=== PATIENT | male | born 1990 | race American Indian/Alaskan Native ===

== ENCOUNTER 2017-07-09 10:19 | Inpatient (IN) | payer SELFPAY ==
[2017-07-09 11:04] LABS: Hematocrit 50.5 % (35.5-45.6); Hemoglobin 17.1 gm/dl (11.8-15.2); Mean Corpuscular HGB Conc 34 % (32-34); Mean Corpuscular Hemoglobin 30 pg (28-32); Mean Corpuscular Volume 88 fl (84-94); Platelet Count 331 K/mm3 (140-440); Red Blood Count 5.77 M/mm3 (3.65-5.03); Red Cell Distribution Width 13.8 % (13.2-15.2)
--- NOTE | 2017-07-09 11:11 | Emergency Department Report ---
ED Psych HPI - General Chief Complaint: Psych Stated Complaint: AMS/PSYCH Time Seen by Provider: 07/09/17 10:37 Source: EMS Mode of arrival: Stretcher Limitations: Other - History of Present Illness Initial Comments: 26 yo male a past medical history brain tumor and psychiatric disorder presents to the hospital complains of combative behavior towards family. Patient apparently was discharged from her was on Monday where he was taken off his psychiatric medication. Patient is alert. When questioned about the year he just starts and states it is 2000 . . And thinking about with specific ear. Patient denies any pain. Patient cannot describe why he is here today when asked direct questions patient's status and is easily distracted and brings up irrelevant topics. Pt recieved versed in route to hospital via ems - Related Data Allergies Allergy/AdvReac Type Severity Reaction Status Date / Time No Known Allergies Allergy Unverified 07/09/17 10:32 ED Review of Systems ROS: Stated complaint: AMS/PSYCH Other details as noted in HPI Comment: Unobtainable due to pts medical conditions ED Past Medical Hx - Past Medical History Additional medical history: Brain tumor - Surgical History Additional Surgical History: Brain tumor removed 12/07 - Social History Smoking Status: Never Smoker Substance Use Type: None ED Physical Exam - General Limitations: No Limitations - Other Other exam information: General: No limitations, patient is alert in no acute distress Head exam: Atraumatic, normocephalic Eyes exam: Normal appearance, pupils equal reactive to light, extraocular movements intact ENT: Moist mucous membrane, normal oropharynx Neck exam: Normal inspection, full range of motion, no meningismus nontender Respiratory exam: Clear to auscultation bilateral, no wheezes, rales, crackles Cardiovascular: Normal rate and rhythm, normal heart sounds Abdomen: Soft, nondistended, and nontender, with normal bowel sounds, no rebound, or guarding Extremity: Full range of motion normal inspection no deformity Back: Normal Inspection, full range of motion, no tenderness Neurologic: Alert, oriented x3, cranial nerves intact, no motor or sensory deficit Psychiatric: Poor eye contact, psychosis, unable to answer direct questions appropriately Skin: Warm, dry, intact ED Course Vital Signs 07/09/17 07/09/17 07/09/17 10:32 11:07 11:14 Temperature 98.2 F 97.5 F L Pulse Rate 84 77 Respiratory 16 18 17 Rate Blood Pressure 140/78 Blood Pressure 109/66 [Left] O2 Sat by Pulse 99 99 Oximetry - Reevaluation(s) Reevaluation #1: 07/09/17 19:39 Patient required Haldol and Ativan for sedation prior to CT ED Medical Decision Making - Lab Data Result diagrams: 07/09/17 10:43 07/09/17 10:43 Lab Results 07/09/17 07/09/17 07/09/17 Range/Units 10:43 10:43 10:43 WBC 9.8 (4.5-11.0) K/mm3 RBC 5.77 H (3.65-5.03) M/mm3 Hgb 17.1 H (11.8-15.2) gm/dl Hct 50.5 H (35.5-45.6) % MCV 88 (84-94) fl MCH 30 (28-32) pg MCHC 34 (32-34) % RDW 13.8 (13.2-15.2) % Plt Count 331 (140-440) K/mm3 Sodium 140 (137-145) mmol/L Potassium 4.1 (3.6-5.0) mmol/L Chloride 98.5 (98-107) mmol/L Carbon Dioxide 30 (22-30) mmol/L Anion Gap 16 mmol/L BUN 15 (9-20) mg/dL Creatinine 0.9 (0.8-1.5) mg/dL Estimated GFR > 60 ml/min BUN/Creatinine Ratio 17 % Glucose 65 L (75-100) mg/dL Calcium 10.1 (8.4-10.2) mg/dL Urine Color (Yellow) Urine Turbidity (Clear) Urine pH (5.0-7.0) Ur Specific [place] (1.003-1.030) Urine Protein (Negative) mg/dL Urine Glucose (UA) (Negative) mg/dL Urine Ketones (Negative) mg/dL Urine Blood (Negative) Urine Nitrite (Negative) Urine Bilirubin (Negative) Urine Urobilinogen (<2.0) mg/dL Ur Leukocyte Esterase (Negative) Urine WBC (Auto) (0.0-6.0) /HPF Urine RBC (Auto) (0.0-6.0) /HPF U Epithel Cells (Auto) (0-13.0) /HPF Urine Mucus /HPF Urine Opiates Screen Urine Methadone Screen Ur Barbiturates Screen Ur Phencyclidine Scrn Ur Amphetamines Screen U Benzodiazepines Scrn Urine Cocaine Screen U Marijuana (THC) Screen Drugs of Abuse Note Plasma/Serum Alcohol < 0.01 (0-0.07) gm% 07/09/17 07/09/17 Range/Units 15:55 15:55 WBC (4.5-11.0) K/mm3 RBC (3.65-5.03) M/mm3 Hgb (11.8-15.2) gm/dl Hct (35.5-45.6) % MCV (84-94) fl MCH (28-32) pg MCHC (32-34) % RDW (13.2-15.2) % Plt Count (140-440) K/mm3 Sodium (137-145) mmol/L Potassium (3.6-5.0) mmol/L Chloride (98-107) mmol/L Carbon Dioxide (22-30) mmol/L Anion Gap mmol/L BUN (9-20) mg/dL Creatinine (0.8-1.5) mg/dL Estimated GFR ml/min BUN/Creatinine Ratio % Glucose (75-100) mg/dL Calcium (8.4-10.2) mg/dL Urine Color Yellow (Yellow) Urine Turbidity Clear (Clear) Urine pH 6.0 (5.0-7.0) Ur Specific [place] 1.032 H (1.003-1.030) Urine Protein <15 mg/dl (Negative) mg/dL Urine Glucose (UA) Neg (Negative) mg/dL Urine Ketones Neg (Negative) mg/dL Urine Blood Neg (Negative) Urine Nitrite Neg (Negative) Urine Bilirubin Neg (Negative) Urine Urobilinogen 2.0 (<2.0) mg/dL Ur Leukocyte Esterase Neg (Negative) Urine WBC (Auto) 2.0 (0.0-6.0) /HPF Urine RBC (Auto) 10.0 (0.0-6.0) /HPF U Epithel Cells (Auto) < 1.0 (0-13.0) /HPF Urine Mucus 2+ /HPF Urine Opiates Screen Presumptive negative Urine Methadone Screen Presumptive negative Ur Barbiturates Screen Presumptive negative Ur Phencyclidine Scrn Presumptive negative Ur Amphetamines Screen Presumptive negative U Benzodiazepines Scrn Presumptive positive Urine Cocaine Screen Presumptive negative U Marijuana (THC) Screen Presumptive negative Drugs of Abuse Note Disclamer Plasma/Serum Alcohol (0-0.07) gm% - Radiology Data Radiology results: report reviewed CT head: No acute findings. Post surgical changes noted within the right cerebellar hemisphere and right suboccipital calvarium - Medical Decision Making 1013 and transfer form singed medically clearerd awaiting acceptance - Differential Diagnosis psychosis, drug abuse, medication noncompliance Critical Care Time: No Critical care attestation.: If time is entered above; I have spent that time in minutes in the direct care of this critically ill patient, excluding procedure time. ED Disposition Clinical Impression: Psychosis, Medical clearance for psychiatric admission Disposition: [id number]/TX-65 PSY HOSP/PSY UNIT Is pt being admited?: No Does the pt Need Aspirin: No Condition: Stable Time of Disposition: 19:41 (awaiting acceptance)
[2017-07-09 11:18] LABS: BUN/Creatinine Ratio 17; Blood Urea Nitrogen 15 mg/dL (9-20); Calcium 10.1 mg/dL (8.4-10.2); Hemolysis Index 6
[2017-07-09] MEDS ORDERED: GEODON IM ONE ×2 (12:02→12:04)
[2017-07-09] MEDS ORDERED: HALDOL IM ONE (12:55)
[2017-07-09] MEDS ORDERED: HALDOL ONE ×2 (12:56→12:57)
[2017-07-09] MEDS ORDERED: ATIVAN IM ONE (13:30)
--- NOTE | 2017-07-09 14:44 | Cat Scan Report ---
FINAL REPORT EXAM: CT HEAD/BRAIN WO CON HISTORY: psychosis, hx of brain tumor resection May TECHNIQUE: CT of the Head without IV contrast. PRIORS: None currently available. FINDINGS: Focal encephalomalacia noted within the right cerebellar hemisphere probably related to prior surgical resection. There is no evidence for acute ischemia. There is no hemorrhage. There is no midline shift. There is no hydrocephalus. There is no mass. Age appropriate ames-white matter attenuation is noted. There is no calvarial fracture. Patient status post suboccipital craniectomy with overlying mass showed. The temporal bones demonstrate aerated mastoid air cells. The middle ears appear unremarkable. Mild debris is present within both external auditory canals. Paranasal sinuses are unremarkable. Globes are intact. IMPRESSION: No acute intracranial findings. Postsurgical changes noted within the right cerebellar hemisphere and right suboccipital calvarium.
[2017-07-09 16:17] LABS: Bilirubin,Urine NEG (Negative); Blood,Urine NEG (Negative); Color,Urine Yellow (Yellow); Mucus,Urine 2+ /HPF; Nitrite,Urine NEG (Negative); Protein,Urine <15 mg/dL mg/dL (Negative)
[2017-07-09 16:34] LABS: Amphetamine Screen,Urine PRESUMPTIVE NEGATIVE; Cannabinoid Screen,Urine PRESUMPTIVE NEGATIVE; Cocaine Screen,Urine PRESUMPTIVE NEGATIVE; Methadone Screen,Urine PRESUMPTIVE NEGATIVE; Opiate Screen,Urine PRESUMPTIVE NEGATIVE
[2017-07-09 16:40] LABS: Benzodiazepines Screen,Urine PRESUMPTIVE POSITIVE
[2017-07-10] MEDS: ATIVAN IM PRN ×2 (10:52→17:11)
[2017-07-10] MEDS ORDERED: NACL 0.9% 1000 ML 2,000 ML IV ONE (13:38)
[2017-07-10] MEDS ORDERED: NACL 0.9% 1000 ML 1,000 ML ONE (15:51)
--- NOTE | 2017-07-10 16:01 | Consultation ---
History of Present Illness - Reason for Consult Consult date: 07/10/17 Reason for consult: Mental Health Evaluation Requesting physician: KATHERINE TORRES - Chief Complaint Chief complaint: "What are you doing" - History of Present Psychiatric Illness 26 y.o. AA male presenting to [facility] via EMS for bizarre behavior. Today patient is calm, but disorganized during the assessment. Patient had to be redirected several time during the interview. His answers were not logical. The patient stare with a normal blink rate. Patient is a poor historian at this time. No gestures of SI/HI's. Medications and Allergies Allergies Allergy/AdvReac Type Severity Reaction Status Date / Time No Known Allergies Allergy Unverified 07/09/17 10:32 Active Meds: Active Medications Lorazepam (Ativan) 2 mg IM Q4HR PRN PRN Reason: Agitation Last Admin: 07/10/17 10:52 Dose: 2 mg Past psychiatric history - Past Medical History Past Medical History: other (Brain Tumor per the record) Past Surgical History: Other (Unable to obtain) - past Psychiatric treatment and history psychiatric treatment history: Unable to obtain a psy hx and fam psy hx. - Social History Social history: other (Unable to obtain ) Mental Status Exam - Vital signs Last Vital Signs Temp 97.9 F 07/10/17 07:05 Pulse 101 H 07/10/17 07:05 Resp 20 07/10/17 07:05 BP 138/85 07/10/17 07:05 Pulse Ox 99 07/10/17 07:05 - Exam Narrative exam: MSE: Appearance: calm Behavior: stare with a normal blink rate Speech: regular rate and tone Mood: unable to assess Affect: blunted Thought Process: unable to assess Thought Content: no gestures of SI/HI's and AVH's, disorganized Motor Activity: sitting up in bed Cognition: alert Insight: poor Judgment: poor Results Result Diagrams: 07/09/17 10:43 07/09/17 10:43 Abnormal lab results 07/09/17 07/10/17 Range/Units 15:55 09:37 Total Creatine Kinase 1525 H (55-170) units/L Ur Specific [place] 1.032 H (1.003-1.030) All other labs normal. Assessment and Plan Assessment and plan: Impression: Unspecified Psychosis. Today patient is calm, but disorganized during the assessment. Positive for benzos. CK 1525. DDx: R/O Schizophrenia Recommendation/Plan: Continue 1013 with placement to inpatient psy services. Start Risperdal 1 mg PO HS for psychosis. Discusessed possible metabolic side effects of Risperdal with patient. Observe patient overnight to determine if medication will be given for possible catatonia. Monitor patient for withdrawals (benzos).
[2017-07-10] MEDS: RisperDAL PO SCH (21:43)
[2017-07-11] MEDS: ATIVAN IM PRN (06:43)
--- NOTE | 2017-07-11 12:49 | Progress Note ---
Subjective - Reason for Consult Consult date: 07/11/17 Reason for consult: Psychiatry Follow-up - Chief Complaint Chief complaint: "Hello" 26 y.o. AA male presenting to [facility] via EMS for bizarre behavior. Today patient is calm, but disorganized and delusional during the assessment. He stated that someone was following him daily. He couldn't tell me how it got to the hospital. Per collateral information from his mother Lashaun Roa at . She stated that her son had brain surgery to remove a tumor 22 Nov 2016 at [facility]. Per the patient's mother, the last time her son followed up with a neurologist was January 2017. Per Ms Roa, the patient was told to follow up in 6 months. She denies that her son has a mental health dx. She denies a fam psy hx. She stated that his behavior has changed since his surgery. She stated that her son is a student at [employer]. She stated that her son was dealing with stress since May 2017 because of school issues. She stated that his motor skills were not his baseline when she called EMS to bring him to the hospital (current admission). She stated that her son was discharged from [facility] last week without any prescriptions. The patient denies SI/HI's and VH's. Patient stated that he hear "some type of voice , but cannot make them out." Mental Status Exam - Vital signs Last Vital Signs Temp 97.5 F L 07/11/17 10:56 Pulse 82 07/11/17 10:56 Resp 15 07/11/17 10:56 BP 114/64 07/11/17 10:56 Pulse Ox 100 07/11/17 10:56 - Exam Narrative exam: MSE: Appearance: calm, cooperative Behavior: stare with a normal blink rate Speech: regular rate and tone Mood: "okay" Affect: blunted Thought Process: not logical Thought Content: denies SI/HI's and VH's, disorganized, delusional Motor Activity: psychomotor retardation Cognition: A/O x2 Insight: poor Judgment: poor Assessment and Plan Impression: Unspecified Psychosis. Today patient is calm, but disorganized and delusional during the assessment. Positive for benzos. CK trending upward 2369. Per collateral information: Patient had brain surgery November 2016. A copy of his surgical procedure was given to his assigned RN in the ER to put on his chart. DDx: R/O Schizophrenia Recommendation/Plan: Continue 1013. Informed the ER staff about patient brain surgery and the concerns of his mother. Informed ER staff of patient's elevated CK. Continue Risperdal 1 mg PO HS for psychosis. Discussed possible metabolic side effects of Risperdal with patient and his mother. Recommend neuro consult. Will assess patient daily.
[2017-07-11] MEDS ORDERED: NACL 0.9% 1000 ML 1,000 ML IV ONE (19:06)
[2017-07-11] MEDS ORDERED: NACL 0.9% 1000 ML 2,000 ML IV ONE (19:06)
[2017-07-11] MEDS ORDERED: PROVENTIL IH PRN (20:15)
--- NOTE | 2017-07-11 20:17 | History and Physical Report ---
History of Present Illness Chief complaint: confused History of present illness: 26 YO Male with Psychosis presents to ED for evaluation. Pt unable to give history, but history taken from ED staff, and medical record. Pt seen and evaluated in ED for Psychosis, and was pending placement. Pt subsequently found to have elevated CK level around 10x the upper limit of normal which is consistent with Rhabdomyolysis. Pt seen and evaluated in ED and subsequently admitted to the hospitalist service. Pt minimally cooperative with exam and interview. No reports of fever, chills, CP, Palpitations, NVD, hematuria, flank pain, BRBPR, Trauma, productive cough, or recent ill contacts. Pt had brain surgery in November 2016 for a tumor removal, and as per mother, he has experienced changes in his mental state since that time. Pt was recently admitted to [place], and discharged home without medication. Psychiatry consulted in ED. Past History Past Medical History: other (Brain Tumor per the record) Past Surgical History: Other (Unable to obtain) Social history: other (Unable to obtain ) Medications and Allergies Allergies Allergy/AdvReac Type Severity Reaction Status Date / Time No Known Allergies Allergy Unverified 07/09/17 10:32 Active Meds: Active Medications Acetaminophen (Tylenol) 650 mg PO Q4H PRN PRN Reason: Pain MILD(1-3)/Fever >100.5/ANAYA Albuterol (Proventil) 2.5 mg IH Q4HRT PRN PRN Reason: Shortness Of Breath Sodium Chloride (Nacl 0.45% 1000 Ml) 1,000 mls @ 125 mls/hr IV DIRECT SONG Lorazepam (Ativan) 2 mg IM Q4HR PRN PRN Reason: Agitation Last Admin: 07/11/17 06:43 Dose: 2 mg Risperidone (Risperdal) 1 mg PO HS SONG Last Admin: 07/10/17 21:43 Dose: 1 mg Review of Systems ROS unobtainable: due to mental status Exam - Constitutional Vitals: Temp Pulse Resp BP Pulse Ox 97.5 F L 82 15 114/64 100 07/11/17 10:56 07/11/17 10:56 07/11/17 10:56 07/11/17 10:56 07/11/17 10:56 General appearance: Present: no acute distress, well-nourished - EENT Eyes: Present: PERRL ENT: hearing intact, clear oral mucosa - Neck Neck: Present: supple, normal ROM - Respiratory Respiratory effort: normal Respiratory: bilateral: CTA - Cardiovascular Heart Sounds: Present: S1 & S2. Absent: rub, click - Extremities Extremities: pulses symmetrical, No edema Peripheral Pulses: within normal limits - Abdominal General gastrointestinal: Present: soft, non-tender, non-distended, normal bowel sounds Male genitourinary: Present: normal - Integumentary Integumentary: Present: clear, warm, dry - Musculoskeletal Musculoskeletal: gait normal, strength equal bilaterally - Psychiatric Psychiatric: appropriate mood/affect, intact judgment & insight - Neurologic Neurologic: CNII-XII intact, moves all extremities Results - Labs CBC & Chem 7: 07/09/17 10:43 07/09/17 10:43 Labs: Abnormal lab results 07/11/17 Range/Units 12:52 Total Creatine Kinase 2369 H (55-170) units/L Assessment and Plan - Patient Problems (1) Rhabdomyolysis Current Visit: Yes Status: Acute Plan to address problem: IV Fluid resuscitation therapy, monitor uop q shift, CK level in AM. repeat bmp (2) Psychosis Current Visit: Yes Status: Acute Plan to address problem: Psych consulted, (3) DVT prophylaxis Current Visit: Yes Status: Acute
--- NOTE | 2017-07-11 22:00 | XRay Report ---
FINAL REPORT EXAM: XR CHEST 1V AP HISTORY: Dyspnea TECHNIQUE: AP portable view of the chest PRIORS: None. FINDINGS: Lines, tubes, and devices: N/A Lungs and pleura: Trachea is normal in position. Lungs are clear of infiltrate, pleural effusion, vascular congestion, or pneumothorax. Cardiomediastinal silhouette: Cardiac and mediastinal silhouettes are unremarkable. Other: Bony structures are intact. IMPRESSION: No acute cardiopulmonary process seen.
[2017-07-11] MEDS ORDERED: RisperDAL ONE (23:22)
[2017-07-12] MEDS: RisperDAL PO SCH ×2 (00:37→22:32)
--- NOTE | 2017-07-12 08:53 | Progress Note ---
<NATASHA TAVAREZ - Last Filed: 07/13/17 16:00> Assessment and Plan Assessment and plan: Patient is a 26 years old male with Psychosis presents to ED for evaluation. Pt subsequently found to have elevated CK level around 10x the upper limit of normal which is consistent with Rhabdomyolysis. Rhabdomyolysis Continue IV Fluid resuscitation therapy Monitor urine output , Closely monitor CK level Supportive care Psychosis Started on Remeron to help with his appetite Mental following S/p brain surgery The patient's appetite is poor and not sleeping at night and confused . Neurology consult DVT prophylaxis Lovenox History Interval history: Patient seems calm today,labs and nursing notes reviewed. Hospitalist Physical - Constitutional Vitals: Temp Pulse Resp BP Pulse Ox 97.4 F L 58 L 20 114/70 100 07/12/17 07:52 07/12/17 07:52 07/12/17 07:52 07/12/17 07:52 07/12/17 07:52 General appearance: Present: no acute distress, well-nourished, other (confused ) - EENT Eyes: Present: PERRL ENT: hearing intact - Neck Neck: Present: supple - Respiratory Respiratory effort: normal Respiratory: bilateral: CTA - Cardiovascular Rhythm: regular Heart Sounds: Present: S1 & S2 - Abdominal General gastrointestinal: soft, non-tender - Integumentary Integumentary: Present: clear, warm, dry - Psychiatric Psychiatric: appropriate mood/affect - Neurologic Neurologic: moves all extremities - Allied Health Allied health notes reviewed: nursing Results - Labs CBC & Chem 7: 07/09/17 10:43 07/09/17 10:43 Labs: Laboratory Last Values WBC 9.8 K/mm3 (4.5-11.0) 07/09/17 10:43 RBC 5.77 M/mm3 (3.65-5.03) H 07/09/17 10:43 Hgb 17.1 gm/dl (11.8-15.2) H 07/09/17 10:43 Hct 50.5 % (35.5-45.6) H 07/09/17 10:43 MCV 88 fl (84-94) 07/09/17 10:43 MCH 30 pg (28-32) 07/09/17 10:43 MCHC 34 % (32-34) 07/09/17 10:43 RDW 13.8 % (13.2-15.2) 07/09/17 10:43 Plt Count 331 K/mm3 (140-440) 07/09/17 10:43 D-Dimer 433.30 ng/mlDDU (0-234) H 07/11/17 21:46 Sodium 140 mmol/L (137-145) 07/09/17 10:43 Potassium 4.1 mmol/L (3.6-5.0) 07/09/17 10:43 Chloride 98.5 mmol/L (98-107) 07/09/17 10:43 Carbon Dioxide 30 mmol/L (22-30) 07/09/17 10:43 Anion Gap 16 mmol/L 07/09/17 10:43 BUN 15 mg/dL (9-20) 07/09/17 10:43 Creatinine 0.9 mg/dL (0.8-1.5) 07/09/17 10:43 Estimated GFR > 60 ml/min 07/09/17 10:43 BUN/Creatinine Ratio 17 % 07/09/17 10:43 Glucose 65 mg/dL (75-100) L 07/09/17 10:43 Calcium 10.1 mg/dL (8.4-10.2) 07/09/17 10:43 Total Creatine Kinase 1308 units/L (55-170) H 07/12/17 05:46 Urine Color Yellow (Yellow) 07/09/17 15:55 Urine Turbidity Clear (Clear) 07/09/17 15:55 Urine pH 6.0 (5.0-7.0) 07/09/17 15:55 Ur Specific [place] 1.032 (1.003-1.030) H 07/09/17 15:55 Urine Protein <15 mg/dl mg/dL (Negative) 07/09/17 15:55 Urine Glucose (UA) Neg mg/dL (Negative) 07/09/17 15:55 Urine Ketones Neg mg/dL (Negative) 07/09/17 15:55 Urine Blood Neg (Negative) 07/09/17 15:55 Urine Nitrite Neg (Negative) 07/09/17 15:55 Urine Bilirubin Neg (Negative) 07/09/17 15:55 Urine Urobilinogen 2.0 mg/dL (<2.0) 07/09/17 15:55 Ur Leukocyte Esterase Neg (Negative) 07/09/17 15:55 Urine WBC (Auto) 2.0 /HPF (0.0-6.0) 07/09/17 15:55 Urine RBC (Auto) 10.0 /HPF (0.0-6.0) 07/09/17 15:55 U Epithel Cells (Auto) < 1.0 /HPF (0-13.0) 07/09/17 15:55 Urine Mucus 2+ /HPF 07/09/17 15:55 Urine Opiates Screen Presumptive negative 07/09/17 15:55 Urine Methadone Screen Presumptive negative 07/09/17 15:55 Ur Barbiturates Screen Presumptive negative 07/09/17 15:55 Ur Phencyclidine Scrn Presumptive negative 07/09/17 15:55 Ur Amphetamines Screen Presumptive negative 07/09/17 15:55 U Benzodiazepines Scrn Presumptive positive 07/09/17 15:55 Urine Cocaine Screen Presumptive negative 07/09/17 15:55 U Marijuana (THC) Screen Presumptive negative 07/09/17 15:55 Drugs of Abuse Note Disclamer 07/09/17 15:55 Plasma/Serum Alcohol < 0.01 gm% (0-0.07) 07/09/17 10:43 <HAKAN GAUTHIER M - Last Filed: 07/14/17 23:24> Hospitalist Physical - Constitutional Vitals: Temp Pulse Resp BP Pulse Ox 98.6 F 103 H 18 119/71 99 07/14/17 15:30 07/14/17 15:30 07/14/17 15:30 07/14/17 15:30 07/14/17 22:22 Results - Labs CBC & Chem 7: 07/09/17 10:43 07/09/17 10:43 Labs: Laboratory Last Values WBC 9.8 K/mm3 (4.5-11.0) 07/09/17 10:43 RBC 5.77 M/mm3 (3.65-5.03) H 07/09/17 10:43 Hgb 17.1 gm/dl (11.8-15.2) H 07/09/17 10:43 Hct 50.5 % (35.5-45.6) H 07/09/17 10:43 MCV 88 fl (84-94) 07/09/17 10:43 MCH 30 pg (28-32) 07/09/17 10:43 MCHC 34 % (32-34) 07/09/17 10:43 RDW 13.8 % (13.2-15.2) 07/09/17 10:43 Plt Count 331 K/mm3 (140-440) 07/09/17 10:43 D-Dimer 433.30 ng/mlDDU (0-234) H 07/11/17 21:46 Sodium 140 mmol/L (137-145) 07/09/17 10:43 Potassium 4.1 mmol/L (3.6-5.0) 07/09/17 10:43 Chloride 98.5 mmol/L (98-107) 07/09/17 10:43 Carbon Dioxide 30 mmol/L (22-30) 07/09/17 10:43 Anion Gap 16 mmol/L 07/09/17 10:43 BUN 15 mg/dL (9-20) 07/09/17 10:43 Creatinine 0.9 mg/dL (0.8-1.5) 07/09/17 10:43 Estimated GFR > 60 ml/min 07/09/17 10:43 BUN/Creatinine Ratio 17 % 07/09/17 10:43 Glucose 65 mg/dL (75-100) L 07/09/17 10:43 Calcium 10.1 mg/dL (8.4-10.2) 07/09/17 10:43 Total Creatine Kinase 260 units/L (55-170) H 07/14/17 05:17 Vitamin B12 543.5 pg/mL (211-911) 07/14/17 13:40 TSH 2.030 mlU/mL (0.270-4.200) 07/14/17 13:40 Free T4 1.69 ng/dL (0.76-1.46) H 07/14/17 13:40 Urine Color Yellow (Yellow) 07/09/17 15:55 Urine Turbidity Clear (Clear) 07/09/17 15:55 Urine pH 6.0 (5.0-7.0) 07/09/17 15:55 Ur Specific [place] 1.032 (1.003-1.030) H 07/09/17 15:55 Urine Protein <15 mg/dl mg/dL (Negative) 07/09/17 15:55 Urine Glucose (UA) Neg mg/dL (Negative) 07/09/17 15:55 Urine Ketones Neg mg/dL (Negative) 07/09/17 15:55 Urine Blood Neg (Negative) 07/09/17 15:55 Urine Nitrite Neg (Negative) 07/09/17 15:55 Urine Bilirubin Neg (Negative) 07/09/17 15:55 Urine Urobilinogen 2.0 mg/dL (<2.0) 07/09/17 15:55 Ur Leukocyte Esterase Neg (Negative) 07/09/17 15:55 Urine WBC (Auto) 2.0 /HPF (0.0-6.0) 07/09/17 15:55 Urine RBC (Auto) 10.0 /HPF (0.0-6.0) 07/09/17 15:55 U Epithel Cells (Auto) < 1.0 /HPF (0-13.0) 07/09/17 15:55 Urine Mucus 2+ /HPF 07/09/17 15:55 Urine Opiates Screen Presumptive negative 07/09/17 15:55 Urine Methadone Screen Presumptive negative 07/09/17 15:55 Ur Barbiturates Screen Presumptive negative 07/09/17 15:55 Ur Phencyclidine Scrn Presumptive negative 07/09/17 15:55 Ur Amphetamines Screen Presumptive negative 07/09/17 15:55 U Benzodiazepines Scrn Presumptive positive 07/09/17 15:55 Urine Cocaine Screen Presumptive negative 07/09/17 15:55 U Marijuana (THC) Screen Presumptive negative 07/09/17 15:55 Drugs of Abuse Note Disclamer 07/09/17 15:55 Plasma/Serum Alcohol < 0.01 gm% (0-0.07) 07/09/17 10:43
--- NOTE | 2017-07-12 11:48 | Cat Scan Report ---
CTA CHEST: HISTORY: Shortness of breath, elevated d-dimer. COMPARISON: none. TECHNIQUE: Helical CT in 1.25mm intervals following IV contrast. Pulmonary embolus protocol. Sagittal and coronal reformatted images. Rotational MIP images. FINDINGS: Contrast bolus is satisfactory. No pulmonary embolus is identified. Thyroid gland: Normal. Tracheobronchial tree: Normal. Esophagus: Normal. Heart: Normal. Pericardium: Normal. Mediastinum: Normal. Lung [place]: normal. Pleural Spaces: Normal. Musculoskeletal: Normal. IMPRESSION: No evidence for pulmonary embolus. Unremarkable CT chest with contrast.
[2017-07-12] MEDS: ATIVAN IM PRN (12:53)
[2017-07-12] MEDS: NACL 0.45% 1000 ML 1,000 ML IV SCH ×2 (14:44→22:32)
[2017-07-12] MEDS: TYLENOL PO PRN (22:32)
[2017-07-13] MEDS: ATIVAN IM PRN ×2 (02:03→11:32)
--- NOTE | 2017-07-13 09:38 | Progress Note ---
Subjective - Reason for Consult Consult date: 07/13/17 Reason for consult: Psychiatry Follow-up - Chief Complaint Chief complaint: "Hello" 26 y.o. AA male presenting to [facility] via EMS for bizarre behavior. Today patient is calm, but disorganized and paranoid during the assessment. He stated that he want his mind to get "right" so he can go home. He had to be redirected several times to keep him on topic. The patient denies this type of behavior prior to his brain surgery in November 2016. He denies SI/HI's and AVH's. Per collateral information from the patient's attending physician, the patient' s appetite is poor and he isn't sleeping at night. Mental Status Exam - Vital signs Last Vital Signs Temp 98.5 F 07/13/17 07:30 Pulse 76 07/13/17 07:30 Resp 19 07/13/17 07:30 BP 113/70 07/13/17 07:30 Pulse Ox 100 07/13/17 07:30 - Exam Narrative exam: MSE: Appearance: calm, cooperative Behavior: stare with a normal blink rate Speech: regular rate and tone Mood: "okay" Affect: blunted Thought Process: tangential, not logical Thought Content: denies SI/HI's and AVH's, disorganized, paranoid Motor Activity: psychomotor retardation Cognition: A/O x2 Insight: poor Judgment: poor Assessment and Plan Impression: Unspecified Psychosis. Today patient is calm, but disorganized and delusional during the assessment. Positive for benzos. CK trending down 1308. Neuro consult pending. Per collateral information: Patient had brain surgery November 2016. A copy of his surgical procedure was given to his assigned RN in the ER to put on his chart. DDx: R/O Schizophrenia Recommendation/Plan: Continue 1013. Continue Risperdal 1 mg PO HS for psychosis and start Remeron 15 mg PO HS for sleep consolidation. Discussed possible metabolic side effects of Risperdal with patient and his mother. Discussed possible suicidality/medication induced gabriela with patient reference Remeron. Will assess patient daily.
[2017-07-13] MEDS: TYLENOL PO PRN (13:48)
[2017-07-13] MEDS: REMERON PO SCH (21:43)
[2017-07-13] MEDS: NACL 0.45% 1000 ML 1,000 ML IV SCH (21:43)
[2017-07-13] MEDS: RisperDAL PO SCH (21:43)
[2017-07-14] MEDS: ATIVAN IV PRN (01:40)
[2017-07-14] MEDS: NACL 0.45% 1000 ML 1,000 ML IV SCH (06:09)
--- NOTE | 2017-07-14 10:10 | Progress Note ---
Subjective - Reason for Consult Consult date: 07/14/17 Reason for consult: Psychiatry Follow-up - Chief Complaint Chief complaint: "Hi" 26 y.o. AA male presenting to [facility] via EMS for bizarre behavior. Today patient is calm and cooperative during the assessment. The patient was more organized with his thoughts today, but he could not confirm or deny if someone is out to harm him when asked. Per the staff, the patient slept last night and ate 100% of his breakfast this morning. He denies SI/HI's and AVH's. He denies any side effects of his medications. Mental Status Exam - Vital signs Last Vital Signs Temp 97.5 F L 07/14/17 08:24 Pulse 73 07/14/17 08:24 Resp 16 07/14/17 08:24 BP 110/71 07/14/17 08:24 Pulse Ox 100 07/14/17 08:24 - Exam Narrative exam: MSE: Appearance: calm, cooperative Behavior: good eye contact Speech: regular rate and tone Mood: "okay" Affect: congruent to mood Thought Process: circumstantial Thought Content: denies SI/HI's and AVH's, paranoid Motor Activity: psychomotor retardation Cognition: A/O x3 Insight: variable Judgment: variable Assessment and Plan Impression: Unspecified Psychosis. Cognitive DO. Today patient is calm, but paranoid during the assessment. Positive for benzos. CK trending down 206. Neuro consult pending. Per collateral information: Patient had brain surgery November 2016. A copy of his surgical procedure was given to his assigned RN in the ER to put on his chart. DDx: R/O Schizophrenia Recommendation/Plan: Continue 1013. Continue Risperdal 1 mg PO HS for psychosis and Remeron 15 mg PO HS for sleep consolidation. Discussed possible metabolic side effects of Risperdal with patient and his mother. Discussed possible suicidality/medication induced gabriela with patient reference Remeron. Will assess patient daily.
--- NOTE | 2017-07-14 12:15 | Consultation ---
History of Present Illness Consult date: 07/14/17 Requesting physician: HAKAN GAUTHIER Reason for Consult: altered mental status History of present illness: This 26 year old male presented to the ER earlier this week with altered mental status. 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 He had presented with headache at that time. According to his mother by report his mental status was normal and he was attending college prior to this surgery. On admission here he has exhibited paranoia, schizophrenic behavior, not sleeping or eating. On his current treatment he seems to be improving. Past History Past Medical History: other (Brain Tumor per the record, hemangioblastoma) Past Surgical History: Other (craniotomy, 11/2016) Social history: other (Unable to obtain ) Medications and Allergies Allergies Allergy/AdvReac Type Severity Reaction Status Date / Time No Known Allergies Allergy Unverified 07/09/17 10:32 Home Medications Medication Instructions Recorded Confirmed Last Taken Type No Known Home Medications [No 07/11/17 07/11/17 Unknown History Reported Home Medications] Active Meds: Active Medications Acetaminophen (Tylenol) 650 mg PO Q4H PRN PRN Reason: Pain MILD(1-3)/Fever >100.5/ANAYA Last Admin: 07/13/17 13:48 Dose: 650 mg Albuterol (Proventil) 2.5 mg IH Q4HRT PRN PRN Reason: Shortness Of Breath Lorazepam (Ativan) 2 mg IV Q4H PRN PRN Reason: Agitation Last Admin: 07/14/17 01:40 Dose: 2 mg Mirtazapine (Remeron) 15 mg PO QHS SONG Last Admin: 07/13/17 21:43 Dose: 15 mg Risperidone (Risperdal) 1 mg PO HS SONG Last Admin: 07/13/17 21:43 Dose: 1 mg Review of Systems ROS unobtainable: due to mental status (Patient is very reluctant to respond to questions.) Physical Examination - Vital Signs Vital Signs: Vital Signs Temp Pulse Resp BP Pulse Ox 98.2 F 84 16 140/78 99 07/09/17 10:32 07/09/17 10:32 07/09/17 10:32 07/09/17 10:32 07/09/17 10:32 - Constitutional General appearance: comfortable, other (very stiff posture, ?catatonic) - EENT EENT: Present: PERRL, mucous membranes moist, hearing intact, vision intact - Respiratory Respiratory: Present: lungs clear, normal breath sounds, no respiratory distress - Cardiovascular Cardiovascular: Present: regular rate, normal S1, normal S2, no murmurs Extremities: Present: no peripheral edema bilatateraly, no clubbing, cyanosis, no inflammation - Gastrointestinal Gastrointestinal: Present: soft, non-tender - Neurologic Cranial nerve examination: PERRL, EOMI, V1/V2/V3 grossly intact, face symmetric , tongue midline, intact shoulder shrug Speech examination: intact Sensorimotor examination: intact Detailed motor examination: grossly full strength in, full strength in all ijeoma Motor examination - right side: 5/5: biceps, triceps, wrist flexion, wrist extension, hip flexors, knee extensors, dorsiflexion, toe extension (EHL), plantarflexion Motor examination - left side: 5/5: biceps, triceps, wrist flexion, wrist extension, hip flexors, knee extensors, dorsiflexion, toe extension (EHL), plantarflexion Detailed sensory examination: intact, light touch, pain Posture: other (catatonic posture) Reflex and gait examination: normal gait Reflexes: 1+: ankle, bicep, knee, tricep - Psychiatric Psychiatric: Present: depressed, other (slow to respond, cooperated well with the exam.) Results - Laboratory Findings CBC and BMP: 07/09/17 10:43 07/09/17 10:43 Abnormal Lab Findings: Abnormal Labs 07/09/17 07/09/17 07/09/17 10:43 10:43 15:55 RBC 5.77 H Hgb 17.1 H Hct 50.5 H D-Dimer Glucose 65 L Total Creatine Kinase Ur Specific [place] 1.032 H 07/10/17 07/11/17 07/11/17 09:37 12:52 21:46 RBC Hgb Hct D-Dimer 433.30 H Glucose Total Creatine Kinase 1525 H 2369 H Ur Specific [place] 07/12/17 07/14/17 05:46 05:17 RBC Hgb Hct D-Dimer Glucose Total Creatine Kinase 1308 H 260 H Ur Specific [place] Assessment and Plan This 26 year old male diagnosed in November with hemangioblastoma, presents with agitated behavior, psychosis. Hemangioblastoma is a benign tumor, only requiring resection. It is, however, recommended that screening for Von Hippel Lindau disease be done, as these tumors can present in other organs, including lung, pancreas, kidney, adrenals. A chest CT was negative this admission. Will proceed with a metabolic work-up as well as VHL screen in the hope of ruling out metabolic cause for this patient's mental status. CT was negative for hydrocephalus or recurrent mass. will not need MRI. Plan - CT abdomen/pelvis. 24 hour urine collection for metanephrines, a.m. cortisol level vitamin B-12 level, vitamin D level Thyroid panel NAZ
--- NOTE | 2017-07-14 14:32 | Vascular Lab Report ---
LOWER EXTREMITY VENOUS DUPLEX: REASON FOR EXAM: Swelling of the lower extremities. COMMENTS ON THE RIGHT: All veins visualized are freely compressible without evidence of internal echogenicity. Flow is spontaneous and phasic throughout. COMMENTS ON THE LEFT: All veins visualized are freely compressible without evidence of internal echogenicity. Flow is spontaneous and phasic throughout. IMPRESSION: No evidence of acute or chronic deep venous thrombosis in either lower extremity.
--- NOTE | 2017-07-14 15:40 | Progress Note ---
<DOMINGALYNETTENeelimaNATASHA - Last Filed: 07/14/17 15:38> Assessment and Plan Assessment and plan: Patient is a 26 years old male with Psychosis presents to ED for evaluation. Pt subsequently found to have elevated CK level around 10x the upper limit of normal which is consistent with Rhabdomyolysis. Rhabdomyolysis Continue IV Fluid resuscitation therapy Monitor urine output , Closely monitor CK level Supportive care Psychosis Started on Remeron to help with his appetite Mental following S/p brain surgery The patient's appetite is poor and not sleeping at night and confused . Neurology consult DVT prophylaxis [facility] Hospitalist Physical - Constitutional Vitals: Temp Pulse Resp BP Pulse Ox 98.6 F 103 H 18 119/71 97 07/14/17 15:30 07/14/17 15:30 07/14/17 15:30 07/14/17 15:30 07/14/17 15:30 General appearance: Present: no acute distress, well-nourished, other (confused ) Results - Labs CBC & Chem 7: 07/09/17 10:43 07/09/17 10:43 Labs: Laboratory Last Values WBC 9.8 K/mm3 (4.5-11.0) 07/09/17 10:43 RBC 5.77 M/mm3 (3.65-5.03) H 07/09/17 10:43 Hgb 17.1 gm/dl (11.8-15.2) H 07/09/17 10:43 Hct 50.5 % (35.5-45.6) H 07/09/17 10:43 MCV 88 fl (84-94) 07/09/17 10:43 MCH 30 pg (28-32) 07/09/17 10:43 MCHC 34 % (32-34) 07/09/17 10:43 RDW 13.8 % (13.2-15.2) 07/09/17 10:43 Plt Count 331 K/mm3 (140-440) 07/09/17 10:43 D-Dimer 433.30 ng/mlDDU (0-234) H 07/11/17 21:46 Sodium 140 mmol/L (137-145) 07/09/17 10:43 Potassium 4.1 mmol/L (3.6-5.0) 07/09/17 10:43 Chloride 98.5 mmol/L (98-107) 07/09/17 10:43 Carbon Dioxide 30 mmol/L (22-30) 07/09/17 10:43 Anion Gap 16 mmol/L 07/09/17 10:43 BUN 15 mg/dL (9-20) 07/09/17 10:43 Creatinine 0.9 mg/dL (0.8-1.5) 07/09/17 10:43 Estimated GFR > 60 ml/min 07/09/17 10:43 BUN/Creatinine Ratio 17 % 07/09/17 10:43 Glucose 65 mg/dL (75-100) L 07/09/17 10:43 Calcium 10.1 mg/dL (8.4-10.2) 07/09/17 10:43 Total Creatine Kinase 260 units/L (55-170) H 07/14/17 05:17 Vitamin B12 543.5 pg/mL (211-911) 07/14/17 13:40 Urine Color Yellow (Yellow) 07/09/17 15:55 Urine Turbidity Clear (Clear) 07/09/17 15:55 Urine pH 6.0 (5.0-7.0) 07/09/17 15:55 Ur Specific [place] 1.032 (1.003-1.030) H 07/09/17 15:55 Urine Protein <15 mg/dl mg/dL (Negative) 07/09/17 15:55 Urine Glucose (UA) Neg mg/dL (Negative) 07/09/17 15:55 Urine Ketones Neg mg/dL (Negative) 07/09/17 15:55 Urine Blood Neg (Negative) 07/09/17 15:55 Urine Nitrite Neg (Negative) 07/09/17 15:55 Urine Bilirubin Neg (Negative) 07/09/17 15:55 Urine Urobilinogen 2.0 mg/dL (<2.0) 07/09/17 15:55 Ur Leukocyte Esterase Neg (Negative) 07/09/17 15:55 Urine WBC (Auto) 2.0 /HPF (0.0-6.0) 07/09/17 15:55 Urine RBC (Auto) 10.0 /HPF (0.0-6.0) 07/09/17 15:55 U Epithel Cells (Auto) < 1.0 /HPF (0-13.0) 07/09/17 15:55 Urine Mucus 2+ /HPF 07/09/17 15:55 Urine Opiates Screen Presumptive negative 07/09/17 15:55 Urine Methadone Screen Presumptive negative 07/09/17 15:55 Ur Barbiturates Screen Presumptive negative 07/09/17 15:55 Ur Phencyclidine Scrn Presumptive negative 07/09/17 15:55 Ur Amphetamines Screen Presumptive negative 07/09/17 15:55 U Benzodiazepines Scrn Presumptive positive 07/09/17 15:55 Urine Cocaine Screen Presumptive negative 07/09/17 15:55 U Marijuana (THC) Screen Presumptive negative 07/09/17 15:55 Drugs of Abuse Note Disclamer 07/09/17 15:55 Plasma/Serum Alcohol < 0.01 gm% (0-0.07) 07/09/17 10:43 <HAKAN GAUTHIER M - Last Filed: 07/14/17 23:33> History Interval history: no cp, no sob, no fever, no n/v/d has been calm and cooperative Hospitalist Physical - Constitutional Vitals: Temp Pulse Resp BP Pulse Ox 98.6 F 103 H 18 119/71 99 07/14/17 15:30 07/14/17 15:30 07/14/17 15:30 07/14/17 15:30 07/14/17 22:22 General appearance: Present: no acute distress - EENT Eyes: Present: PERRL, EOM intact ENT: hearing intact - Neck Neck: Present: supple, normal ROM - Respiratory Respiratory effort: normal Respiratory: bilateral: CTA - Cardiovascular Rhythm: regular Heart Sounds: Present: S1 & S2 - Extremities Extremities: no ischemia Peripheral Pulses: within normal limits - Abdominal General gastrointestinal: soft, non-tender - Integumentary Integumentary: Present: clear, warm - Psychiatric Psychiatric: no intact judgment & insight, cooperative - Neurologic Neurologic: CNII-XII intact, no focal deficits, moves all extremities, gait normal Results - Labs CBC & Chem 7: 07/09/17 10:43 07/09/17 10:43 Labs: Laboratory Last Values WBC 9.8 K/mm3 (4.5-11.0) 07/09/17 10:43 RBC 5.77 M/mm3 (3.65-5.03) H 07/09/17 10:43 Hgb 17.1 gm/dl (11.8-15.2) H 07/09/17 10:43 Hct 50.5 % (35.5-45.6) H 07/09/17 10:43 MCV 88 fl (84-94) 07/09/17 10:43 MCH 30 pg (28-32) 07/09/17 10:43 MCHC 34 % (32-34) 07/09/17 10:43 RDW 13.8 % (13.2-15.2) 07/09/17 10:43 Plt Count 331 K/mm3 (140-440) 07/09/17 10:43 D-Dimer 433.30 ng/mlDDU (0-234) H 07/11/17 21:46 Sodium 140 mmol/L (137-145) 07/09/17 10:43 Potassium 4.1 mmol/L (3.6-5.0) 07/09/17 10:43 Chloride 98.5 mmol/L (98-107) 07/09/17 10:43 Carbon Dioxide 30 mmol/L (22-30) 07/09/17 10:43 Anion Gap 16 mmol/L 07/09/17 10:43 BUN 15 mg/dL (9-20) 07/09/17 10:43 Creatinine 0.9 mg/dL (0.8-1.5) 07/09/17 10:43 Estimated GFR > 60 ml/min 07/09/17 10:43 BUN/Creatinine Ratio 17 % 07/09/17 10:43 Glucose 65 mg/dL (75-100) L 07/09/17 10:43 Calcium 10.1 mg/dL (8.4-10.2) 07/09/17 10:43 Total Creatine Kinase 260 units/L (55-170) H 07/14/17 05:17 Vitamin B12 543.5 pg/mL (211-911) 07/14/17 13:40 TSH 2.030 mlU/mL (0.270-4.200) 07/14/17 13:40 Free T4 1.69 ng/dL (0.76-1.46) H 07/14/17 13:40 Urine Color Yellow (Yellow) 07/09/17 15:55 Urine Turbidity Clear (Clear) 07/09/17 15:55 Urine pH 6.0 (5.0-7.0) 07/09/17 15:55 Ur Specific [place] 1.032 (1.003-1.030) H 07/09/17 15:55 Urine Protein <15 mg/dl mg/dL (Negative) 07/09/17 15:55 Urine Glucose (UA) Neg mg/dL (Negative) 07/09/17 15:55 Urine Ketones Neg mg/dL (Negative) 07/09/17 15:55 Urine Blood Neg (Negative) 07/09/17 15:55 Urine Nitrite Neg (Negative) 07/09/17 15:55 Urine Bilirubin Neg (Negative) 07/09/17 15:55 Urine Urobilinogen 2.0 mg/dL (<2.0) 07/09/17 15:55 Ur Leukocyte Esterase Neg (Negative) 07/09/17 15:55 Urine WBC (Auto) 2.0 /HPF (0.0-6.0) 07/09/17 15:55 Urine RBC (Auto) 10.0 /HPF (0.0-6.0) 07/09/17 15:55 U Epithel Cells (Auto) < 1.0 /HPF (0-13.0) 07/09/17 15:55 Urine Mucus 2+ /HPF 07/09/17 15:55 Urine Opiates Screen Presumptive negative 07/09/17 15:55 Urine Methadone Screen Presumptive negative 07/09/17 15:55 Ur Barbiturates Screen Presumptive negative 07/09/17 15:55 Ur Phencyclidine Scrn Presumptive negative 07/09/17 15:55 Ur Amphetamines Screen Presumptive negative 07/09/17 15:55 U Benzodiazepines Scrn Presumptive positive 07/09/17 15:55 Urine Cocaine Screen Presumptive negative 07/09/17 15:55 U Marijuana (THC) Screen Presumptive negative 07/09/17 15:55 Drugs of Abuse Note Disclamer 07/09/17 15:55 Plasma/Serum Alcohol < 0.01 gm% (0-0.07) 07/09/17 10:43
[2017-07-14 16:59] LABS: Free T4 (Free Thyroxine) 1.69 ng/dL (0.76-1.46)
--- NOTE | 2017-07-14 17:05 | Cat Scan Report ---
FINAL REPORT EXAM: CT ABDOMEN PELVIS WO/W CON HISTORY: dx of hemangioblastoma. evaluate pancreas and kidney for polycystic lesions as can be seen in von Hippel-Lindau disease, history of right cerebellar hemisphere brain tumor resection in November which may be the hemangioblastoma in question TECHNIQUE: CT examination of the ABDOMEN before and after IV contrast CT examination of the PELVIS before and after IV contrast PRIORS: Head CT 07/09/2017 FINDINGS: Normal-appearing liver, gallbladder, adrenals, and spleen. Intact normal caliber abdominal aorta and IVC. The exam is limited from a paucity of natural intra-abdominal fat, and lack of oral contrast, to separate adjacent organs and structures. The ureters are largely obscured by adjacent soft tissues. Intestinal loops are also difficult to visualize separately. The pancreas margins are not well visualized. Nonspecific hypodensity is noted within or adjacent to the pancreatic tail. Normal-appearing kidneys and partly visible ureters. Intact abdominal wall. No retroperitoneal adenopathy. Normal-appearing stomach and duodenum. No small bowel distention in the abdomen and pelvis. No definite pelvic free fluid. Normal-appearing urinary bladder, prostate, seminal vesicles, and rectum. Prominent stool from cecum to sigmoid may reflect constipation. Colon caliber slight prominent diffusely. No gross ascites or free air. Terminal ileum and appendix obscured by adjacent intestine. IMPRESSION: The examination is limited by paucity of abdominal fat and lack of oral contrast. Pancreatic margins not well visualized. Hypodensity may be within or adjacent to the pancreatic tail. The most likely consideration is volume averaging artifact from unopacified small bowel. The differential includes cystic changes in the pancreatic tail. Consider follow-up CT examination with oral contrast in the proximal small bowel or, alternatively, abdomen MRI. Normal-appearing kidneys Prominent stool and colon caliber may reflect constipation
[2017-07-14] MEDS: REMERON PO SCH (21:41)
[2017-07-14] MEDS: RisperDAL PO SCH (21:41)
[2017-07-15] MEDS: ATIVAN IV PRN ×3 (00:09→20:48)
[2017-07-15] MEDS ORDERED: NACL ONE (08:32)
--- NOTE | 2017-07-15 10:30 | Cat Scan Report ---
History of abdomen and pelvis with IV and oral contrast: History: Pancreatic mass. Findings: The stomach and the duodenum is inadequately opacified with oral contrast and most of the contrast is seen in large bowel. The pancreatic head and uncinate process appears normal. Proximal body appears unremarkable. The distal body and tail grossly appears normal though note clearly defined due to absence of contrast in adjacent bowel. Normal adrenals and kidneys and bladder. No free intraperitoneal fluid. No evidence of adenopathy. Gaseous colon but stool and contrast in the colon. No evidence of appendicitis or diverticulitis. Impression: No acute abdominal findings. Additional findings as detailed above.
[2017-07-15] MEDS: TYLENOL PO PRN (13:39)
--- NOTE | 2017-07-15 15:27 | Progress Note ---
Assessment and Plan Assessment and plan: 26m with pmh of brain mass sp resection in November of this year. After which he took several months to recover, and upon returning to [employer], he was suffering from paranoia, decreased cognitive abilities, insomnia and agitation. He was taken to acute hospital and was transfer to inpatient psych, all meds were dc and he was dc home. 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, but screening for VHL syndrome is recommended, metabolic workup including B12, vitD, TFTs , were wnl, NAZ and 24 hour urine metanephrines pending, CT a/p neg for tumors or masses DC home with mom and sister when okayed by psych History Interval history: no cp, no sob, no fever, no n/v/d has been calm and cooperative Hospitalist Physical - Constitutional Vitals: Temp Pulse Resp BP Pulse Ox 97.9 F 77 18 108/61 98 07/15/17 07:35 07/15/17 07:35 07/15/17 07:35 07/15/17 07:35 07/15/17 08:08 General appearance: Present: no acute distress - EENT Eyes: Present: PERRL ENT: hearing intact - Neck Neck: Present: supple - Respiratory Respiratory effort: normal Respiratory: bilateral: CTA - Cardiovascular Rhythm: regular Heart Sounds: Present: S1 & S2 - Extremities Extremities: no ischemia Peripheral Pulses: within normal limits - Abdominal General gastrointestinal: soft, non-tender - Integumentary Integumentary: Present: clear, warm, dry - Psychiatric Psychiatric: no intact judgment & insight (child like behavior), cooperative - Neurologic Neurologic: CNII-XII intact, moves all extremities, gait normal Results - Labs CBC & Chem 7: 07/09/17 10:43 07/09/17 10:43 Labs: Laboratory Last Values WBC 9.8 K/mm3 (4.5-11.0) 07/09/17 10:43 RBC 5.77 M/mm3 (3.65-5.03) H 07/09/17 10:43 Hgb 17.1 gm/dl (11.8-15.2) H 07/09/17 10:43 Hct 50.5 % (35.5-45.6) H 07/09/17 10:43 MCV 88 fl (84-94) 07/09/17 10:43 MCH 30 pg (28-32) 07/09/17 10:43 MCHC 34 % (32-34) 07/09/17 10:43 RDW 13.8 % (13.2-15.2) 07/09/17 10:43 Plt Count 331 K/mm3 (140-440) 07/09/17 10:43 D-Dimer 433.30 ng/mlDDU (0-234) H 07/11/17 21:46 Sodium 140 mmol/L (137-145) 07/09/17 10:43 Potassium 4.1 mmol/L (3.6-5.0) 07/09/17 10:43 Chloride 98.5 mmol/L (98-107) 07/09/17 10:43 Carbon Dioxide 30 mmol/L (22-30) 07/09/17 10:43 Anion Gap 16 mmol/L 07/09/17 10:43 BUN 15 mg/dL (9-20) 07/09/17 10:43 Creatinine 0.9 mg/dL (0.8-1.5) 07/09/17 10:43 Estimated GFR > 60 ml/min 07/09/17 10:43 BUN/Creatinine Ratio 17 % 07/09/17 10:43 Glucose 65 mg/dL (75-100) L 07/09/17 10:43 Calcium 10.1 mg/dL (8.4-10.2) 07/09/17 10:43 Total Creatine Kinase 179 units/L (55-170) H 07/15/17 05:33 Vitamin B12 543.5 pg/mL (211-911) 07/14/17 13:40 TSH 2.030 mlU/mL (0.270-4.200) 07/14/17 13:40 Free T4 1.69 ng/dL (0.76-1.46) H 07/14/17 13:40 Urine Color Yellow (Yellow) 07/09/17 15:55 Urine Turbidity Clear (Clear) 07/09/17 15:55 Urine pH 6.0 (5.0-7.0) 07/09/17 15:55 Ur Specific [place] 1.032 (1.003-1.030) H 07/09/17 15:55 Urine Protein <15 mg/dl mg/dL (Negative) 07/09/17 15:55 Urine Glucose (UA) Neg mg/dL (Negative) 07/09/17 15:55 Urine Ketones Neg mg/dL (Negative) 07/09/17 15:55 Urine Blood Neg (Negative) 07/09/17 15:55 Urine Nitrite Neg (Negative) 07/09/17 15:55 Urine Bilirubin Neg (Negative) 07/09/17 15:55 Urine Urobilinogen 2.0 mg/dL (<2.0) 07/09/17 15:55 Ur Leukocyte Esterase Neg (Negative) 07/09/17 15:55 Urine WBC (Auto) 2.0 /HPF (0.0-6.0) 07/09/17 15:55 Urine RBC (Auto) 10.0 /HPF (0.0-6.0) 07/09/17 15:55 U Epithel Cells (Auto) < 1.0 /HPF (0-13.0) 07/09/17 15:55 Urine Mucus 2+ /HPF 07/09/17 15:55 Urine Opiates Screen Presumptive negative 07/09/17 15:55 Urine Methadone Screen Presumptive negative 07/09/17 15:55 Ur Barbiturates Screen Presumptive negative 07/09/17 15:55 Ur Phencyclidine Scrn Presumptive negative 07/09/17 15:55 Ur Amphetamines Screen Presumptive negative 07/09/17 15:55 U Benzodiazepines Scrn Presumptive positive 07/09/17 15:55 Urine Cocaine Screen Presumptive negative 07/09/17 15:55 U Marijuana (THC) Screen Presumptive negative 07/09/17 15:55 Drugs of Abuse Note Disclamer 07/09/17 15:55 Plasma/Serum Alcohol < 0.01 gm% (0-0.07) 07/09/17 10:43 - Imaging and Cardiology CT scan - abdomen: image reviewed (no tumors or masses)
[2017-07-15] MEDS: REMERON PO SCH (22:28)
[2017-07-15] MEDS: RisperDAL PO SCH (22:28)
[2017-07-16] MEDS: ATIVAN IV PRN ×3 (04:58→23:18)
--- NOTE | 2017-07-16 09:53 | Progress Note ---
Subjective - Reason for Consult Consult date: 07/16/17 Reason for consult: Psychiatry Follow-up - Chief Complaint Chief complaint: "Hello" 26 y.o. AA male presenting to [facility] via EMS for bizarre behavior. Today patient is calm and cooperative during the assessment. He stated that he still feels like someone is out to get him. He continues to state that he want to get his mind "right." He denies SI/HI's and AVH's. Per the staff, the patient is completing his ADL's and eating 100% of his meals. He denies any side effects of his medications. Mental Status Exam - Vital signs Last Vital Signs Temp 97.7 F 07/16/17 07:23 Pulse 75 07/16/17 07:23 Resp 18 07/16/17 07:23 BP 101/60 07/16/17 07:23 Pulse Ox 100 07/16/17 07:23 - Exam Narrative exam: MSE: Appearance: calm, cooperative Behavior: good eye contact Speech: regular rate and tone Mood: "okay" Affect: congruent to mood Thought Process: circumstantial Thought Content: denies SI/HI's and AVH's, paranoid, delusional Motor Activity: ambulatory Cognition: A/O x3 Insight: variable Judgment: variable Assessment and Plan Impression: Unspecified Psychosis. Cognitive DO. Today patient is calm, but paranoid during the assessment. Positive for benzos. CK trending down 179. Neuro following patient. Per collateral information: Patient had brain surgery November 2016. A copy of his surgical procedure was given to his assigned RN in the ER to put on his chart. DDx: R/O Schizophrenia, R/O Delusional DO Recommendation/Plan: Continue 1013. Continue Risperdal 1 mg PO HS for psychosis and Remeron 15 mg PO HS for sleep consolidation. Discussed possible metabolic side effects of Risperdal with patient and his mother. Discussed possible suicidality/medication induced gabriela with patient reference Remeron. Will assess patient daily. Per Neuro Consult - screening for Von Hippel Lindau disease to be done, as these tumors can present in other organs, including lung , pancreas, kidney, adrenals. Will proceed with a metabolic work-up as well as VHL screen in the hope of ruling out metabolic cause for this patient's mental status.
--- NOTE | 2017-07-16 10:26 | Progress Note ---
Assessment and Plan Assessment and plan: 26m with pmh of brain mass sp resection in November of this year. After which he took several months to recover, and upon returning to [employer], he was suffering from paranoia, decreased cognitive abilities, insomnia and agitation. He was taken to acute hospital and was transfer to inpatient psych, all meds were dc and he was dc home. 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, but screening for VHL syndrome is recommended, metabolic workup including B12, TFTs , were wnl, NAZ , cortisol, vit D and 24 hour urine metanephrines pending, CT a/p neg for tumors or masses DC home with mom and sister when okayed by psych History Interval history: no cp, no sob, no fever, no n/v/d has been calm and cooperative Hospitalist Physical - Constitutional Vitals: Temp Pulse Resp BP Pulse Ox 97.7 F 75 18 101/60 100 07/16/17 07:23 07/16/17 07:23 07/16/17 07:23 07/16/17 07:23 07/16/17 07:23 General appearance: Present: no acute distress - EENT Eyes: Present: PERRL ENT: hearing intact - Neck Neck: Present: supple - Respiratory Respiratory effort: normal Respiratory: bilateral: CTA - Cardiovascular Rhythm: regular Heart Sounds: Present: S1 & S2 - Extremities Extremities: no ischemia, pulses intact Peripheral Pulses: within normal limits - Abdominal General gastrointestinal: soft, non-tender - Integumentary Integumentary: Present: clear, warm - Psychiatric Psychiatric: no intact judgment & insight (child like behavior) - Neurologic Neurologic: CNII-XII intact, moves all extremities - Allied Health Allied health notes reviewed: nursing Results - Labs CBC & Chem 7: 07/09/17 10:43 07/09/17 10:43 Labs: Laboratory Last Values WBC 9.8 K/mm3 (4.5-11.0) 07/09/17 10:43 RBC 5.77 M/mm3 (3.65-5.03) H 07/09/17 10:43 Hgb 17.1 gm/dl (11.8-15.2) H 07/09/17 10:43 Hct 50.5 % (35.5-45.6) H 07/09/17 10:43 MCV 88 fl (84-94) 07/09/17 10:43 MCH 30 pg (28-32) 07/09/17 10:43 MCHC 34 % (32-34) 07/09/17 10:43 RDW 13.8 % (13.2-15.2) 07/09/17 10:43 Plt Count 331 K/mm3 (140-440) 07/09/17 10:43 D-Dimer 433.30 ng/mlDDU (0-234) H 07/11/17 21:46 Sodium 140 mmol/L (137-145) 07/09/17 10:43 Potassium 4.1 mmol/L (3.6-5.0) 07/09/17 10:43 Chloride 98.5 mmol/L (98-107) 07/09/17 10:43 Carbon Dioxide 30 mmol/L (22-30) 07/09/17 10:43 Anion Gap 16 mmol/L 07/09/17 10:43 BUN 15 mg/dL (9-20) 07/09/17 10:43 Creatinine 0.9 mg/dL (0.8-1.5) 07/09/17 10:43 Estimated GFR > 60 ml/min 07/09/17 10:43 BUN/Creatinine Ratio 17 % 07/09/17 10:43 Glucose 65 mg/dL (75-100) L 07/09/17 10:43 Calcium 10.1 mg/dL (8.4-10.2) 07/09/17 10:43 Total Creatine Kinase 179 units/L (55-170) H 07/15/17 05:33 Vitamin B12 543.5 pg/mL (211-911) 07/14/17 13:40 TSH 2.030 mlU/mL (0.270-4.200) 07/14/17 13:40 Free T4 1.69 ng/dL (0.76-1.46) H 07/14/17 13:40 Urine Color Yellow (Yellow) 07/09/17 15:55 Urine Turbidity Clear (Clear) 07/09/17 15:55 Urine pH 6.0 (5.0-7.0) 07/09/17 15:55 Ur Specific [place] 1.032 (1.003-1.030) H 07/09/17 15:55 Urine Protein <15 mg/dl mg/dL (Negative) 07/09/17 15:55 Urine Glucose (UA) Neg mg/dL (Negative) 07/09/17 15:55 Urine Ketones Neg mg/dL (Negative) 07/09/17 15:55 Urine Blood Neg (Negative) 07/09/17 15:55 Urine Nitrite Neg (Negative) 07/09/17 15:55 Urine Bilirubin Neg (Negative) 07/09/17 15:55 Urine Urobilinogen 2.0 mg/dL (<2.0) 07/09/17 15:55 Ur Leukocyte Esterase Neg (Negative) 07/09/17 15:55 Urine WBC (Auto) 2.0 /HPF (0.0-6.0) 07/09/17 15:55 Urine RBC (Auto) 10.0 /HPF (0.0-6.0) 07/09/17 15:55 U Epithel Cells (Auto) < 1.0 /HPF (0-13.0) 07/09/17 15:55 Urine Mucus 2+ /HPF 07/09/17 15:55 Urine Opiates Screen Presumptive negative 07/09/17 15:55 Urine Methadone Screen Presumptive negative 07/09/17 15:55 Ur Barbiturates Screen Presumptive negative 07/09/17 15:55 Ur Phencyclidine Scrn Presumptive negative 07/09/17 15:55 Ur Amphetamines Screen Presumptive negative 07/09/17 15:55 U Benzodiazepines Scrn Presumptive positive 07/09/17 15:55 Urine Cocaine Screen Presumptive negative 07/09/17 15:55 U Marijuana (THC) Screen Presumptive negative 07/09/17 15:55 Drugs of Abuse Note Disclamer 07/09/17 15:55 Plasma/Serum Alcohol < 0.01 gm% (0-0.07) 07/09/17 10:43
[2017-07-16] MEDS: REMERON PO SCH (23:18)
[2017-07-16] MEDS: RisperDAL PO SCH (23:18)
[2017-07-17] MEDS: ATIVAN IV PRN ×2 (07:54→21:20)
--- NOTE | 2017-07-17 09:38 | Progress Note ---
Subjective - Reason for Consult Consult date: 07/17/17 Reason for consult: Psychiatry Follow-up - Chief Complaint Chief complaint: "How are you" 26 y.o. AA male presenting to [facility] via EMS for bizarre behavior. Today patient is calm, but still paranoid during the assessment. He continue to state that his "mind" isn't right. He cannot confirm or deny that someone is out to harm him. He denies SI/HI's and AVH's. Per the staff, the patient is completing his ADL's and eating 100% of his meals. He denies any side effects of his medications. Mental Status Exam - Vital signs Last Vital Signs Temp 97.3 F L 07/17/17 07:53 Pulse 75 07/17/17 07:53 Resp 20 07/17/17 07:53 BP 110/61 07/17/17 07:53 Pulse Ox 99 07/17/17 07:53 - Exam Narrative exam: MSE: Appearance: calm, cooperative Behavior: good eye contact Speech: regular rate and tone Mood: "okay" Affect: congruent to mood Thought Process: circumstantial Thought Content: denies SI/HI's and AVH's, paranoid, delusional Motor Activity: ambulatory Cognition: A/O x3 Insight: variable Judgment: variable Assessment and Plan Impression: Unspecified Psychosis. Cognitive DO. Today patient is calm, but still paranoid during the assessment. Positive for benzos. CK trending down 179. Neuro following patient. Per collateral information: Patient had brain surgery November 2016. A copy of his surgical procedure was given to his assigned RN in the ER to put on his chart. DDx: R/O Schizophrenia, R/O Delusional DO Recommendation/Plan: Continue 1013. Modify Risperdal to 1 mg PO BID for psychosis and Remeron 15 mg PO HS for sleep consolidation. Discussed possible metabolic side effects of Risperdal with patient and his mother. Discussed possible suicidality/medication induced gabriela with patient reference Remeron. Will assess patient daily. Per Neuro Consult - screening for Von Hippel Lindau disease to be done, as these tumors can present in other organs, including lung , pancreas, kidney, adrenals. Will proceed with a metabolic work-up as well as VHL screen in the hope of ruling out metabolic cause for this patient's mental status. Patient is pending the results of the following tests - NAZ, Cortisol, and Vitamin D per neuro.
--- NOTE | 2017-07-17 12:40 | Progress Note ---
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 After which he took several months to recover, and upon returning to [employer] , he was suffering from paranoia, decreased cognitive abilities, insomnia and agitation. He was taken to acute hospital and was transfer to inpatient psych, all meds were dc and he was dc home. Unfortunately upon returning home all his symptoms returned, insomnia, agitation, disorganized behavior, anorexia and paranoia Interval history: no cp, no sob, no fever, no n/v/d has been calm and cooperative Updated family at bedside Hospitalist Physical General appearance: Present: no acute distress - EENT Eyes: Present: PERRL ENT: hearing intact - Neck Neck: Present: supple - Respiratory Respiratory effort: normal Respiratory: bilateral: CTA - Cardiovascular Rhythm: regular Heart Sounds: Present: S1 & S2 - Extremities Extremities: no ischemia, pulses intact Peripheral Pulses: within normal limits - Abdominal General gastrointestinal: soft, non-tender - Integumentary Integumentary: Present: clear, warm - Psychiatric Psychiatric: no intact judgment & insight (child like behavior) - Neurologic Neurologic: CNII-XII intact, moves all extremities - Allied Health Allied health notes reviewed: nursing Subjective Date of service: 07/17/17 Objective - Constitutional Vitals: Vital Signs - 12hr 07/17/17 07:53 Temperature 97.3 F L Pulse Rate 75 Respiratory 20 Rate Blood Pressure 110/61 O2 Sat by Pulse 99 Oximetry - Labs CBC & Chem 7: 07/09/17 10:43 07/09/17 10:43
[2017-07-17] MEDS: RisperDAL PO SCH ×2 (13:16→21:20)
[2017-07-17] MEDS: REMERON PO SCH (21:20)
[2017-07-18] MEDS: RisperDAL PO SCH ×2 (09:28→21:58)
--- NOTE | 2017-07-18 09:46 | Progress Note ---
Subjective - Reason for Consult Consult date: 07/18/17 Reason for consult: Psychiatry Follow-up - Chief Complaint Chief complaint: "Good morning" 26 y.o. AA male presenting to [facility] via EMS for bizarre behavior. Today patient is calm, but still paranoid during the assessment. When he is asked about his paranoia, he cannot explain why he feels that way. The patient could possibly be responding to internal stimuli. He stated that he would like to return to college once his mind is "right." He denies SI/HI's and AVH's. He denies any side effects of his medications. Mental Status Exam - Vital signs Last Vital Signs Temp 98.7 F 07/18/17 07:50 Pulse 72 07/18/17 07:50 Resp 18 07/18/17 07:50 BP 103/61 07/18/17 07:50 Pulse Ox 100 07/18/17 07:50 - Exam Narrative exam: MSE: Appearance: calm, cooperative Behavior: good eye contact Speech: regular rate and tone Mood: "okay" Affect: congruent to mood Thought Process: circumstantial Thought Content: denies SI/HI's and AVH's, paranoid, delusional Motor Activity: ambulatory Cognition: A/O x3 Insight: variable Judgment: variable Assessment and Plan Impression: Unspecified Psychosis. Cognitive DO. Today patient is calm, but still paranoid during the assessment. Positive for benzos. CK trending down 179. Neuro following patient. Per collateral information: Patient had brain surgery November 2016. A copy of his surgical procedure was given to his assigned RN in the ER to put on his chart. DDx: R/O Schizophrenia, R/O Delusional DO Recommendation/Plan: Continue 1013. Continue Risperdal to 1 mg PO BID for psychosis and Remeron 15 mg PO HS for sleep consolidation. Discussed possible metabolic side effects of Risperdal with patient and his mother. Discussed possible suicidality/medication induced gabriela with patient reference Remeron. Per Neuro Consult - screening for Von Hippel Lindau disease to be done, as these tumors can present in other organs, including lung, pancreas, kidney, adrenals. Will proceed with a metabolic work-up as well as VHL screen in the hope of ruling out metabolic cause for this patient's mental status. Patient is pending the results of the following tests - NAZ and Vitamin D per neuro. Per his mother, the patient has a outpatient appt with the neuro surgeon next month Jul 2017. Will assess patient daily.
--- NOTE | 2017-07-18 18:33 | Progress Note ---
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 After which he took several months to recover, and upon returning to [employer] , he was suffering from paranoia, decreased cognitive abilities, insomnia and agitation. He was taken to acute hospital and was transfer to inpatient psych, all meds were dc and he was dc home. Unfortunately upon returning home all his symptoms returned, insomnia, agitation, disorganized behavior, anorexia and paranoia Interval history: no cp, no sob, no fever, no n/v/d has been calm and cooperative Updated family at bedside Hospitalist Physical General appearance: Present: no acute distress - EENT Eyes: Present: PERRL ENT: hearing intact - Neck Neck: Present: supple - Respiratory Respiratory effort: normal Respiratory: bilateral: CTA - Cardiovascular Rhythm: regular Heart Sounds: Present: S1 & S2 - Extremities Extremities: no ischemia, pulses intact Peripheral Pulses: within normal limits - Abdominal General gastrointestinal: soft, non-tender - Integumentary Integumentary: Present: clear, warm - Psychiatric Psychiatric: no intact judgment & insight (child like behavior) - Neurologic Neurologic: CNII-XII intact, moves all extremities - Allied Health Allied health notes reviewed: nursing Subjective Date of service: 07/18/17 Objective - Constitutional Vitals: Vital Signs - 12hr 07/18/17 07/18/17 07:50 16:36 Temperature 98.7 F 97.3 F L Pulse Rate 72 69 Respiratory 18 18 Rate Blood Pressure 103/61 114/64 O2 Sat by Pulse 100 100 Oximetry - Labs CBC & Chem 7: 07/09/17 10:43 07/09/17 10:43
[2017-07-18] MEDS: ATIVAN IV PRN (19:14)
[2017-07-18] MEDS: REMERON PO SCH (21:58)
[2017-07-19] MEDS: ATIVAN IV PRN ×2 (04:04→19:49)
[2017-07-19] MEDS: RisperDAL PO SCH ×2 (10:37→22:00)
--- NOTE | 2017-07-19 13:35 | Progress Note ---
Assessment and Plan Assessment and plan: Patient is a 26-year-old man with a history of brain mass s/p resection in November of this year who presented to the emergency department due to combative behavior towards family. Patient was recently in patient psychiatry facility and his medications were stopped per documentation and he was sent home. Unfortunately upon returning home all his symptoms returned, insomnia, agitation , disorganized behavior, anorexia and paranoia and aggressiveness towards family ; therefore, he was brought back to the emergency department. He was found to have acute rhabdomyolysis and admitted to the hospital under 1013. 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 Follow-up on current diagnosis. Overnight uneventful. Patient denies any chest pain, shortness breath, nausea/vomiting or severe headaches. Imaging, nursing note, chart, labs and old chart reviewed. Discussed with patient. Hospitalist Physical - Physical exam Narrative exam: GEN: WDWN, NAD, AWAKE, ALERT, ORIENTATED to self HEENT: NCAT, EOMI, PERRL, OP Clear NECK: supple, no adenopathy, no thyromegaly, no JVD CVS/HEART: RRR, NORMAL S1S2, NO JVD, pulses present bilaterally CHEST/LUNGS: CTA B, Symmetrical chest expansion, good air entry bilaterally GI/Abdomen: soft, NTND, good bowel sounds, no guarding or rebound /Bladder: no suprapubic tenderness, no CVA or paraspinal tenderness EXT/Skin: no c/c/e, no obvious rash MSK: FROM x 4 Neuro: CN 2-12 grossly intact, no new focal deficits Psych: calm - Constitutional Vitals: Temp Pulse Resp BP Pulse Ox 98.5 F 69 20 112/59 100 07/19/17 08:28 07/19/17 08:28 07/19/17 08:28 07/19/17 08:28 07/19/17 08:28 General appearance: Present: no acute distress Results - Labs CBC & Chem 7: 07/09/17 10:43 07/09/17 10:43 Labs: Laboratory Last Values WBC 9.8 K/mm3 (4.5-11.0) 07/09/17 10:43 RBC 5.77 M/mm3 (3.65-5.03) H 07/09/17 10:43 Hgb 17.1 gm/dl (11.8-15.2) H 07/09/17 10:43 Hct 50.5 % (35.5-45.6) H 07/09/17 10:43 MCV 88 fl (84-94) 07/09/17 10:43 MCH 30 pg (28-32) 07/09/17 10:43 MCHC 34 % (32-34) 07/09/17 10:43 RDW 13.8 % (13.2-15.2) 07/09/17 10:43 Plt Count 331 K/mm3 (140-440) 07/09/17 10:43 D-Dimer 433.30 ng/mlDDU (0-234) H 07/11/17 21:46 Sodium 140 mmol/L (137-145) 07/09/17 10:43 Potassium 4.1 mmol/L (3.6-5.0) 07/09/17 10:43 Chloride 98.5 mmol/L (98-107) 07/09/17 10:43 Carbon Dioxide 30 mmol/L (22-30) 07/09/17 10:43 Anion Gap 16 mmol/L 07/09/17 10:43 BUN 15 mg/dL (9-20) 07/09/17 10:43 Creatinine 0.9 mg/dL (0.8-1.5) 07/09/17 10:43 Estimated GFR > 60 ml/min 07/09/17 10:43 BUN/Creatinine Ratio 17 % 07/09/17 10:43 Glucose 65 mg/dL (75-100) L 07/09/17 10:43 Calcium 10.1 mg/dL (8.4-10.2) 07/09/17 10:43 Total Creatine Kinase 179 units/L (55-170) H 07/15/17 05:33 Vitamin B12 543.5 pg/mL (211-911) 07/14/17 13:40 25-OH Vitamin D Total 18 ng/mL (30-100) L 07/14/17 13:40 TSH 2.030 mlU/mL (0.270-4.200) 07/14/17 13:40 Free T4 1.69 ng/dL (0.76-1.46) H 07/14/17 13:40 Total Cortisol 13.2 mcg/dL () 07/14/17 13:40 Urine Color Yellow (Yellow) 07/09/17 15:55 Urine Turbidity Clear (Clear) 07/09/17 15:55 Urine pH 6.0 (5.0-7.0) 07/09/17 15:55 Ur Specific [place] 1.032 (1.003-1.030) H 07/09/17 15:55 Urine Protein <15 mg/dl mg/dL (Negative) 07/09/17 15:55 Urine Glucose (UA) Neg mg/dL (Negative) 07/09/17 15:55 Urine Ketones Neg mg/dL (Negative) 07/09/17 15:55 Urine Blood Neg (Negative) 07/09/17 15:55 Urine Nitrite Neg (Negative) 07/09/17 15:55 Urine Bilirubin Neg (Negative) 07/09/17 15:55 Urine Urobilinogen 2.0 mg/dL (<2.0) 07/09/17 15:55 Ur Leukocyte Esterase Neg (Negative) 07/09/17 15:55 Urine WBC (Auto) 2.0 /HPF (0.0-6.0) 07/09/17 15:55 Urine RBC (Auto) 10.0 /HPF (0.0-6.0) 07/09/17 15:55 U Epithel Cells (Auto) < 1.0 /HPF (0-13.0) 07/09/17 15:55 Urine Mucus 2+ /HPF 07/09/17 15:55 Urine Opiates Screen Presumptive negative 07/09/17 15:55 Urine Methadone Screen Presumptive negative 07/09/17 15:55 Ur Barbiturates Screen Presumptive negative 07/09/17 15:55 Ur Phencyclidine Scrn Presumptive negative 07/09/17 15:55 Ur Amphetamines Screen Presumptive negative 07/09/17 15:55 U Benzodiazepines Scrn Presumptive positive 07/09/17 15:55 Urine Cocaine Screen Presumptive negative 07/09/17 15:55 U Marijuana (THC) Screen Presumptive negative 07/09/17 15:55 Drugs of Abuse Note Disclamer 07/09/17 15:55 Plasma/Serum Alcohol < 0.01 gm% (0-0.07) 07/09/17 10:43
[2017-07-19] MEDS: REMERON PO SCH (22:00)
[2017-07-19] MEDS: AMBIEN PO PRN (22:00)
[2017-07-20] MEDS: ATIVAN IV PRN ×2 (02:29→11:06)
[2017-07-20] MEDS: RisperDAL PO SCH ×2 (10:00→21:39)
--- NOTE | 2017-07-20 14:33 | Progress Note ---
Assessment and Plan Assessment and plan: Patient is a 26-year-old man with a history of brain mass s/p resection in November of this year who presented to the emergency department due to combative behavior towards family. Patient was recently in patient psychiatry facility and his medications were stopped per documentation and he was sent home. Unfortunately upon returning home all his symptoms returned, insomnia, agitation , disorganized behavior, anorexia and paranoia and aggressiveness towards family ; therefore, he was brought back to the emergency department. He was found to have acute rhabdomyolysis and admitted to the hospital under 1013. 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 History Interval history: Patient was seen and examined. Follow-up on current diagnosis. Overnight uneventful. Patient denies any chest pain, shortness breath, nausea/vomiting or severe headaches. Imaging, nursing note, chart, labs and old chart reviewed. Discussed with patient. Hospitalist Physical - Physical exam Narrative exam: GEN: WDWN, NAD, AWAKE, ALERT, ORIENTATED to self HEENT: NCAT, EOMI, PERRL, OP Clear NECK: supple, no adenopathy, no thyromegaly, no JVD CVS/HEART: RRR, NORMAL S1S2, NO JVD, pulses present bilaterally CHEST/LUNGS: CTA B, Symmetrical chest expansion, good air entry bilaterally GI/Abdomen: soft, NTND, good bowel sounds, no guarding or rebound /Bladder: no suprapubic tenderness, no CVA or paraspinal tenderness EXT/Skin: no c/c/e, no obvious rash MSK: FROM x 4 Neuro: CN 2-12 grossly intact, no new focal deficits Psych: calm - Constitutional Vitals: Temp Pulse Resp BP Pulse Ox 97.6 F 90 18 112/68 100 07/20/17 09:08 07/20/17 09:08 07/20/17 09:08 07/20/17 09:08 07/20/17 09:08 General appearance: Present: no acute distress Results - Labs CBC & Chem 7: 07/09/17 10:43 07/09/17 10:43 Labs: Laboratory Last Values WBC 9.8 K/mm3 (4.5-11.0) 07/09/17 10:43 RBC 5.77 M/mm3 (3.65-5.03) H 07/09/17 10:43 Hgb 17.1 gm/dl (11.8-15.2) H 07/09/17 10:43 Hct 50.5 % (35.5-45.6) H 07/09/17 10:43 MCV 88 fl (84-94) 07/09/17 10:43 MCH 30 pg (28-32) 07/09/17 10:43 MCHC 34 % (32-34) 07/09/17 10:43 RDW 13.8 % (13.2-15.2) 07/09/17 10:43 Plt Count 331 K/mm3 (140-440) 07/09/17 10:43 D-Dimer 433.30 ng/mlDDU (0-234) H 07/11/17 21:46 Sodium 140 mmol/L (137-145) 07/09/17 10:43 Potassium 4.1 mmol/L (3.6-5.0) 07/09/17 10:43 Chloride 98.5 mmol/L (98-107) 07/09/17 10:43 Carbon Dioxide 30 mmol/L (22-30) 07/09/17 10:43 Anion Gap 16 mmol/L 07/09/17 10:43 BUN 15 mg/dL (9-20) 07/09/17 10:43 Creatinine 0.9 mg/dL (0.8-1.5) 07/09/17 10:43 Estimated GFR > 60 ml/min 07/09/17 10:43 BUN/Creatinine Ratio 17 % 07/09/17 10:43 Glucose 65 mg/dL (75-100) L 07/09/17 10:43 Calcium 10.1 mg/dL (8.4-10.2) 07/09/17 10:43 Total Creatine Kinase 179 units/L (55-170) H 07/15/17 05:33 Vitamin B12 543.5 pg/mL (211-911) 07/14/17 13:40 25-OH Vitamin D Total 18 ng/mL (30-100) L 07/14/17 13:40 TSH 2.030 mlU/mL (0.270-4.200) 07/14/17 13:40 Free T4 1.69 ng/dL (0.76-1.46) H 07/14/17 13:40 Total Cortisol 13.2 mcg/dL () 07/14/17 13:40 Urine Color Yellow (Yellow) 07/09/17 15:55 Urine Turbidity Clear (Clear) 07/09/17 15:55 Urine pH 6.0 (5.0-7.0) 07/09/17 15:55 Ur Specific [place] 1.032 (1.003-1.030) H 07/09/17 15:55 Urine Protein <15 mg/dl mg/dL (Negative) 07/09/17 15:55 Urine Glucose (UA) Neg mg/dL (Negative) 07/09/17 15:55 Urine Ketones Neg mg/dL (Negative) 07/09/17 15:55 Urine Blood Neg (Negative) 07/09/17 15:55 Urine Nitrite Neg (Negative) 07/09/17 15:55 Urine Bilirubin Neg (Negative) 07/09/17 15:55 Urine Urobilinogen 2.0 mg/dL (<2.0) 07/09/17 15:55 Ur Leukocyte Esterase Neg (Negative) 07/09/17 15:55 Urine WBC (Auto) 2.0 /HPF (0.0-6.0) 07/09/17 15:55 Urine RBC (Auto) 10.0 /HPF (0.0-6.0) 07/09/17 15:55 U Epithel Cells (Auto) < 1.0 /HPF (0-13.0) 07/09/17 15:55 Urine Mucus 2+ /HPF 07/09/17 15:55 Urine Opiates Screen Presumptive negative 07/09/17 15:55 Urine Methadone Screen Presumptive negative 07/09/17 15:55 Ur Barbiturates Screen Presumptive negative 07/09/17 15:55 Ur Phencyclidine Scrn Presumptive negative 07/09/17 15:55 Ur Amphetamines Screen Presumptive negative 07/09/17 15:55 U Benzodiazepines Scrn Presumptive positive 07/09/17 15:55 Urine Cocaine Screen Presumptive negative 07/09/17 15:55 U Marijuana (THC) Screen Presumptive negative 07/09/17 15:55 Drugs of Abuse Note Disclamer 07/09/17 15:55 Plasma/Serum Alcohol < 0.01 gm% (0-0.07) 07/09/17 10:43
[2017-07-20] MEDS: REMERON PO SCH (21:39)
[2017-07-20] MEDS: AMBIEN PO PRN (21:42)
[2017-07-21] MEDS: ATIVAN IV PRN ×2 (05:09→17:37)
[2017-07-21] MEDS: RisperDAL PO SCH ×2 (09:15→22:04)
--- NOTE | 2017-07-21 11:00 | Progress Note ---
Assessment and Plan Assessment and plan: Patient is a 26-year-old man with a history of brain mass s/p resection in November of this year who presented to the emergency department due to combative behavior towards family. Patient was recently in patient psychiatry facility and his medications were stopped per documentation and he was sent home. Unfortunately upon returning home all his symptoms returned, insomnia, agitation , disorganized behavior, anorexia and paranoia and aggressiveness towards family ; therefore, he was brought back to the emergency department. He was found to have acute rhabdomyolysis and admitted to the hospital under 1013. 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 Follow-up on current diagnosis. Overnight uneventful. Patient denies any chest pain, shortness breath, nausea/vomiting or severe headaches. Imaging, nursing note, chart, labs and old chart reviewed. Discussed with patient. Hospitalist Physical - Physical exam Narrative exam: GEN: WDWN, NAD, AWAKE, ALERT, ORIENTATED to self HEENT: NCAT, EOMI, PERRL, OP Clear NECK: supple, no adenopathy, no thyromegaly, no JVD CVS/HEART: RRR, NORMAL S1S2, NO JVD, pulses present bilaterally CHEST/LUNGS: CTA B, Symmetrical chest expansion, good air entry bilaterally GI/Abdomen: soft, NTND, good bowel sounds, no guarding or rebound /Bladder: no suprapubic tenderness, no CVA or paraspinal tenderness EXT/Skin: no c/c/e, no obvious rash MSK: FROM x 4 Neuro: CN 2-12 grossly intact, no new focal deficits Psych: calm - Constitutional Vitals: Temp Pulse Resp BP Pulse Ox 98.2 F 83 18 111/64 100 07/21/17 07:21 07/21/17 07:21 07/21/17 07:21 07/21/17 07:21 07/21/17 07:21 General appearance: Present: no acute distress Results - Labs CBC & Chem 7: 07/09/17 10:43 07/09/17 10:43 Labs: Laboratory Last Values WBC 9.8 K/mm3 (4.5-11.0) 07/09/17 10:43 RBC 5.77 M/mm3 (3.65-5.03) H 07/09/17 10:43 Hgb 17.1 gm/dl (11.8-15.2) H 07/09/17 10:43 Hct 50.5 % (35.5-45.6) H 07/09/17 10:43 MCV 88 fl (84-94) 07/09/17 10:43 MCH 30 pg (28-32) 07/09/17 10:43 MCHC 34 % (32-34) 07/09/17 10:43 RDW 13.8 % (13.2-15.2) 07/09/17 10:43 Plt Count 331 K/mm3 (140-440) 07/09/17 10:43 D-Dimer 433.30 ng/mlDDU (0-234) H 07/11/17 21:46 Sodium 140 mmol/L (137-145) 07/09/17 10:43 Potassium 4.1 mmol/L (3.6-5.0) 07/09/17 10:43 Chloride 98.5 mmol/L (98-107) 07/09/17 10:43 Carbon Dioxide 30 mmol/L (22-30) 07/09/17 10:43 Anion Gap 16 mmol/L 07/09/17 10:43 BUN 15 mg/dL (9-20) 07/09/17 10:43 Creatinine 0.9 mg/dL (0.8-1.5) 07/09/17 10:43 Estimated GFR > 60 ml/min 07/09/17 10:43 BUN/Creatinine Ratio 17 % 07/09/17 10:43 Glucose 65 mg/dL (75-100) L 07/09/17 10:43 Calcium 10.1 mg/dL (8.4-10.2) 07/09/17 10:43 Total Creatine Kinase 179 units/L (55-170) H 07/15/17 05:33 Vitamin B12 543.5 pg/mL (211-911) 07/14/17 13:40 25-OH Vitamin D Total 18 ng/mL (30-100) L 07/14/17 13:40 TSH 2.030 mlU/mL (0.270-4.200) 07/14/17 13:40 Free T4 1.69 ng/dL (0.76-1.46) H 07/14/17 13:40 Total Cortisol 13.2 mcg/dL () 07/14/17 13:40 Urine Color Yellow (Yellow) 07/09/17 15:55 Urine Turbidity Clear (Clear) 07/09/17 15:55 Urine pH 6.0 (5.0-7.0) 07/09/17 15:55 Ur Specific [place] 1.032 (1.003-1.030) H 07/09/17 15:55 Urine Protein <15 mg/dl mg/dL (Negative) 07/09/17 15:55 Urine Glucose (UA) Neg mg/dL (Negative) 07/09/17 15:55 Urine Ketones Neg mg/dL (Negative) 07/09/17 15:55 Urine Blood Neg (Negative) 07/09/17 15:55 Urine Nitrite Neg (Negative) 07/09/17 15:55 Urine Bilirubin Neg (Negative) 07/09/17 15:55 Urine Urobilinogen 2.0 mg/dL (<2.0) 07/09/17 15:55 Ur Leukocyte Esterase Neg (Negative) 07/09/17 15:55 Urine WBC (Auto) 2.0 /HPF (0.0-6.0) 07/09/17 15:55 Urine RBC (Auto) 10.0 /HPF (0.0-6.0) 07/09/17 15:55 U Epithel Cells (Auto) < 1.0 /HPF (0-13.0) 07/09/17 15:55 Urine Mucus 2+ /HPF 07/09/17 15:55 Urine Opiates Screen Presumptive negative 07/09/17 15:55 Urine Methadone Screen Presumptive negative 07/09/17 15:55 Ur Barbiturates Screen Presumptive negative 07/09/17 15:55 Ur Phencyclidine Scrn Presumptive negative 07/09/17 15:55 Ur Amphetamines Screen Presumptive negative 07/09/17 15:55 U Benzodiazepines Scrn Presumptive positive 07/09/17 15:55 Urine Cocaine Screen Presumptive negative 07/09/17 15:55 U Marijuana (THC) Screen Presumptive negative 07/09/17 15:55 Drugs of Abuse Note Disclamer 07/09/17 15:55 Plasma/Serum Alcohol < 0.01 gm% (0-0.07) 07/09/17 10:43
[2017-07-21] MEDS ORDERED: AMBIEN PO SCH (22:00)
[2017-07-21] MEDS ORDERED: DESYREL PO SCH (22:00)
[2017-07-21] MEDS: REMERON PO SCH (22:36)
--- NOTE | 2017-07-21 22:40 | Progress Note ---
Subjective - Reason for Consult Reason for consult: psych consult - Chief Complaint Chief complaint: 26 y.o. AA male presenting to [facility] via EMS for bizarre behavior. Today patient continues to display a level of disorganization including some paranoia. He tends to have moments when he isn't fully able to appreciate his surrounding well and present with disorganization. He denies any current SI/HI but was talking about some delusional aspects. The family was present and they noted that they are mainly concerned with his lack of sleep and would like that addressed prior to returning home, given that they feel the lack of sleep is heavily influencing some of the current behaviors. Mental Status Exam - Vital signs Last Vital Signs Temp 98.8 F 07/21/17 20: Pulse 99 H 07/21/17 20:29 Resp 20 07/21/17 20:29 BP 120/55 07/21/17 20:29 Pulse Ox 100 07/21/17 20:29 - Exam Orientation: place, person Affect: flat Mood: other (no answer) Thought content: delusions Thought Process: Circumstantial, Tangential, Disorganized Speech: paucity Concentration: distractible, unable to pay attention Motor activity: agitated Level of consciousness: alert Sleep Symptoms: Sleepiness (cannot fully assess mental status given presentation ) Interaction: apathetic Assessment and Plan Assessment and Plan Impression: Unspecified Psychosis. Cognitive DO NOS Recommendation/Plan: d/c 1013. Add Trazodone to patient meds to help provide proper sleep. Will also increase the risperdal to 1mgpo qam and 2mg po qpm to address the psychosis. Once sleep has improved the family notes that they can manage the patient's needs better. The patient's condition remains an effect from a multiple of processes that are influencing the current disorganized presentation (including the paranoia). I feel that his condition will require a multifaceted approach consisting of neuro, neurosurgery, and psych. The family and I discussed how to proceed with acquiring this from an outpatient respective once patient is discharged.
[2017-07-21] MEDS ORDERED: RisperDAL PO ONE (22:44)
[2017-07-22] MEDS: ATIVAN IV PRN ×2 (03:25→16:25)
[2017-07-22] MEDS ORDERED: RisperDAL PO SCH ×2 (10:00→22:00)
[2017-07-22 11:24] LABS: ANA Screen, IFA Negative (Negative)
--- NOTE | 2017-07-22 14:05 | Progress Note ---
Assessment and Plan Assessment and plan: Patient is a 26-year-old man with a history of brain mass s/p resection in November of this year who presented to the emergency department due to combative behavior towards family. Patient was recently in patient psychiatry facility and his medications were stopped per documentation and he was sent home. Unfortunately upon returning home all his symptoms returned, insomnia, agitation , disorganized behavior, anorexia and paranoia and aggressiveness towards family ; therefore, he was brought back to the emergency department. He was found to have acute rhabdomyolysis and admitted to the hospital under 1013. 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 Cheo Hines:"Impression: Unspecified Psychosis. Cognitive DO NOS Recommendation/Plan: d/c 1013. Add Trazodone to patient meds to help provide proper sleep. Will also increase the risperdal to 1mgpo qam and 2mg po qpm to address the psychosis. Once sleep has improved the family notes that they can manage the patient's needs better. The patient's condition remains an effect from a multiple of processes that are influencing the current disorganized presentation (including the paranoia). I feel that his condition will require a multifaceted approach consisting of neuro, neurosurgery, and psych. The family and I discussed how to proceed with acquiring this from an outpatient respective once patient is discharged." 07/22/17: still hasn't slept, will increase Trazodone to 150mg qhs. History Interval history: Patient was seen and examined. Follow-up on current diagnosis. Overnight uneventful. Patient denies any chest pain, shortness breath, nausea/vomiting or severe headaches. Imaging, nursing note, chart, labs and old chart reviewed. Discussed with patient. Hospitalist Physical - Physical exam Narrative exam: GEN: WDWN, NAD, AWAKE, ALERT, ORIENTATED to self HEENT: NCAT, EOMI, PERRL, OP Clear NECK: supple, no adenopathy, no thyromegaly, no JVD CVS/HEART: RRR, NORMAL S1S2, NO JVD, pulses present bilaterally CHEST/LUNGS: CTA B, Symmetrical chest expansion, good air entry bilaterally GI/Abdomen: soft, NTND, good bowel sounds, no guarding or rebound /Bladder: no suprapubic tenderness, no CVA or paraspinal tenderness EXT/Skin: no c/c/e, no obvious rash MSK: FROM x 4 Neuro: CN 2-12 grossly intact, no new focal deficits Psych: calm - Constitutional Vitals: Temp Pulse Resp BP Pulse Ox 98.5 F 93 H 18 115/71 100 07/22/17 07:15 07/22/17 07:15 07/22/17 07:15 07/22/17 07:15 07/22/17 07:15 General appearance: Present: no acute distress Results - Labs CBC & Chem 7: 07/09/17 10:43 07/09/17 10:43 Labs: Laboratory Last Values WBC 9.8 K/mm3 (4.5-11.0) 07/09/17 10:43 RBC 5.77 M/mm3 (3.65-5.03) H 07/09/17 10:43 Hgb 17.1 gm/dl (11.8-15.2) H 07/09/17 10:43 Hct 50.5 % (35.5-45.6) H 07/09/17 10:43 MCV 88 fl (84-94) 07/09/17 10:43 MCH 30 pg (28-32) 07/09/17 10:43 MCHC 34 % (32-34) 07/09/17 10:43 RDW 13.8 % (13.2-15.2) 07/09/17 10:43 Plt Count 331 K/mm3 (140-440) 07/09/17 10:43 D-Dimer 433.30 ng/mlDDU (0-234) H 07/11/17 21:46 Sodium 140 mmol/L (137-145) 07/09/17 10:43 Potassium 4.1 mmol/L (3.6-5.0) 07/09/17 10:43 Chloride 98.5 mmol/L (98-107) 07/09/17 10:43 Carbon Dioxide 30 mmol/L (22-30) 07/09/17 10:43 Anion Gap 16 mmol/L 07/09/17 10:43 BUN 15 mg/dL (9-20) 07/09/17 10:43 Creatinine 0.9 mg/dL (0.8-1.5) 07/09/17 10:43 Estimated GFR > 60 ml/min 07/09/17 10:43 BUN/Creatinine Ratio 17 % 07/09/17 10:43 Glucose 65 mg/dL (75-100) L 07/09/17 10:43 Calcium 10.1 mg/dL (8.4-10.2) 07/09/17 10:43 Total Creatine Kinase 179 units/L (55-170) H 07/15/17 05:33 Vitamin B12 543.5 pg/mL (211-911) 07/14/17 13:40 25-OH Vitamin D Total 18 ng/mL (30-100) L 07/14/17 13:40 TSH 2.030 mlU/mL (0.270-4.200) 07/14/17 13:40 Free T4 1.69 ng/dL (0.76-1.46) H 07/14/17 13:40 Total Cortisol 13.2 mcg/dL () 07/14/17 13:40 Urine Color Yellow (Yellow) 07/09/17 15:55 Urine Turbidity Clear (Clear) 07/09/17 15:55 Urine pH 6.0 (5.0-7.0) 07/09/17 15:55 Ur Specific [place] 1.032 (1.003-1.030) H 07/09/17 15:55 Urine Protein <15 mg/dl mg/dL (Negative) 07/09/17 15:55 Urine Glucose (UA) Neg mg/dL (Negative) 07/09/17 15:55 Urine Ketones Neg mg/dL (Negative) 07/09/17 15:55 Urine Blood Neg (Negative) 07/09/17 15:55 Urine Nitrite Neg (Negative) 07/09/17 15:55 Urine Bilirubin Neg (Negative) 07/09/17 15:55 Urine Urobilinogen 2.0 mg/dL (<2.0) 07/09/17 15:55 Ur Leukocyte Esterase Neg (Negative) 07/09/17 15:55 Urine WBC (Auto) 2.0 /HPF (0.0-6.0) 07/09/17 15:55 Urine RBC (Auto) 10.0 /HPF (0.0-6.0) 07/09/17 15:55 U Epithel Cells (Auto) < 1.0 /HPF (0-13.0) 07/09/17 15:55 Urine Mucus 2+ /HPF 07/09/17 15:55 Urine Opiates Screen Presumptive negative 07/09/17 15:55 Urine Methadone Screen Presumptive negative 07/09/17 15:55 Ur Barbiturates Screen Presumptive negative 07/09/17 15:55 Ur Phencyclidine Scrn Presumptive negative 07/09/17 15:55 Ur Amphetamines Screen Presumptive negative 07/09/17 15:55 U Benzodiazepines Scrn Presumptive positive 07/09/17 15:55 Urine Cocaine Screen Presumptive negative 07/09/17 15:55 U Marijuana (THC) Screen Presumptive negative 07/09/17 15:55 Drugs of Abuse Note Disclamer 07/09/17 15:55 Plasma/Serum Alcohol < 0.01 gm% (0-0.07) 07/09/17 10:43 NAZ Screen Negative (Negative) 07/14/17 13:40
--- NOTE | 2017-07-22 14:57 | Progress Note ---
Subjective - Reason for Consult Consult date: 07/22/17 Reason for consult: follow up - Chief Complaint Chief complaint: 26 y.o. AA male presenting [facility] for bizarre behavior. Today patient continues to display a level of disorganization including some paranoia. His orientation is variable. He made several statement that he is to a tang. Later he was yelling saying he is not . He denies any current SI/ HI but was talking about some delusional aspects. His mother was present and they noted that they are mainly concerned with his lack of sleep and would like that addressed prior to returning home, given that they feel the lack of sleep is heavily influencing some of the current behaviors. He was observed to be drooling. His mother reports he has been having difficulty swallowing liquids. He is restless and repeatedly in and out of his bed. He was also complaining of muscle spasms in his neck. Mental Status Exam - Vital signs Last Vital Signs Temp 98.5 F 07/22/17 07:15 Pulse 93 H 07/22/17 07:15 Resp 18 07/22/17 07:15 BP 115/71 07/22/17 07:15 Pulse Ox 100 07/22/17 07:15 - Exam Narrative exam: Orientation: place, person Affect: flat Mood: other (no answer) Thought content: delusions Thought Process: Circumstantial, Tangential, Disorganized Speech: paucity Concentration: distractible, unable to pay attention Motor activity: agitated, restless, muscle spasms, trouble swallowing, drooling Level of consciousness: alert Sleep Symptoms: insomnia Interaction: apathetic Assessment and Plan Impression: Unspecified Psychosis. Cognitive DO NOS Recommendation/Plan: 1013 was rescinded previously. Increase Trazodone to 150mg hs for insomnia (Dr. Day increased it) cogentin 1mg po once for possible EPS and assess response to determine if he needs it scheduled . Decrease risperdal to 1mg bid. The patient's condition remains an effect from a multiple of processes that are influencing the current disorganized presentation (including the paranoia). His condition will require a multifaceted approach consisting of neuro, neurosurgery, and psych. Dr. Day was informed of drooling and possible EPS.
[2017-07-22] MEDS ORDERED: COGENTIN PO ONE (18:00)
[2017-07-22] MEDS: DESYREL PO SCH (21:23)
[2017-07-22] MEDS: RisperDAL PO SCH (21:23)
[2017-07-22] MEDS: REMERON PO SCH (21:24)
[2017-07-22] MEDS ORDERED: AMBIEN PO SCH (22:00)
[2017-07-23] MEDS: ATIVAN IV PRN ×3 (01:27→20:13)
[2017-07-23] MEDS: RisperDAL PO SCH ×2 (11:07→21:31)
[2017-07-23] MEDS ORDERED: VASELINE LIP THERAPY TP PRN (11:09)
--- NOTE | 2017-07-23 17:08 | Progress Note ---
Assessment and Plan Assessment and plan: Patient is a 26-year-old man with a history of brain mass s/p resection in November of this year who presented to the emergency department due to combative behavior towards family. Patient was recently in patient psychiatry facility and his medications were stopped per documentation and he was sent home. Unfortunately upon returning home all his symptoms returned, insomnia, agitation , disorganized behavior, anorexia and paranoia and aggressiveness towards family ; therefore, he was brought back to the emergency department. He was found to have acute rhabdomyolysis and admitted to the hospital under 1013. 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 Cheo Hines: "Impression: Unspecified Psychosis. Cognitive DO NOS Recommendation/Plan: d/c 1013. Add Trazodone to patient meds to help provide proper sleep. Will also increase the risperdal to 1mgpo qam and 2mg po qpm to address the psychosis. Once sleep has improved the family notes that they can manage the patient's needs better. The patient's condition remains an effect from a multiple of processes that are influencing the current disorganized presentation (including the paranoia). I feel that his condition will require a multifaceted approach consisting of neuro, neurosurgery, and psych. The family and I discussed how to proceed with acquiring this from an outpatient respective once patient is discharged." 07/22/17: still hasn't slept, will increase Trazodone to 150mg qhs. D/W psych, medication adjusted 07/23/17: He did sleep about 3 hours last night. He is now sleep also, after 2mg iv ativan round 4pm. I tried to call his mother at [phone] (number in the EMR), no answer History Interval history: Patient was seen and examined. Follow-up on current diagnosis. Overnight uneventful. Patient denies any chest pain, shortness breath, nausea/vomiting or severe headaches. Imaging, nursing note, chart, labs and old chart reviewed. Discussed with patient. Hospitalist Physical - Physical exam Narrative exam: GEN: WDWN, NAD, AWAKE, ALERT, ORIENTATED to self HEENT: NCAT, EOMI, PERRL, OP Clear NECK: supple, no adenopathy, no thyromegaly, no JVD CVS/HEART: RRR, NORMAL S1S2, NO JVD, pulses present bilaterally CHEST/LUNGS: CTA B, Symmetrical chest expansion, good air entry bilaterally GI/Abdomen: soft, NTND, good bowel sounds, no guarding or rebound /Bladder: no suprapubic tenderness, no CVA or paraspinal tenderness EXT/Skin: no c/c/e, no obvious rash MSK: FROM x 4 Neuro: CN 2-12 grossly intact, no new focal deficits Psych: calm - Constitutional Vitals: Temp Pulse Resp BP Pulse Ox 98.5 F 102 H 20 121/57 100 07/23/17 07:38 07/23/17 07:38 07/23/17 07:38 07/23/17 07:38 07/23/17 07:38 General appearance: Present: no acute distress Results - Labs CBC & Chem 7: 07/09/17 10:43 07/09/17 10:43 Labs: Laboratory Last Values WBC 9.8 K/mm3 (4.5-11.0) 07/09/17 10:43 RBC 5.77 M/mm3 (3.65-5.03) H 07/09/17 10:43 Hgb 17.1 gm/dl (11.8-15.2) H 07/09/17 10:43 Hct 50.5 % (35.5-45.6) H 07/09/17 10:43 MCV 88 fl (84-94) 07/09/17 10:43 MCH 30 pg (28-32) 07/09/17 10:43 MCHC 34 % (32-34) 07/09/17 10:43 RDW 13.8 % (13.2-15.2) 07/09/17 10:43 Plt Count 331 K/mm3 (140-440) 07/09/17 10:43 D-Dimer 433.30 ng/mlDDU (0-234) H 07/11/17 21:46 Sodium 140 mmol/L (137-145) 07/09/17 10:43 Potassium 4.1 mmol/L (3.6-5.0) 07/09/17 10:43 Chloride 98.5 mmol/L (98-107) 07/09/17 10:43 Carbon Dioxide 30 mmol/L (22-30) 07/09/17 10:43 Anion Gap 16 mmol/L 07/09/17 10:43 BUN 15 mg/dL (9-20) 07/09/17 10:43 Creatinine 0.9 mg/dL (0.8-1.5) 07/09/17 10:43 Estimated GFR > 60 ml/min 07/09/17 10:43 BUN/Creatinine Ratio 17 % 07/09/17 10:43 Glucose 65 mg/dL (75-100) L 07/09/17 10:43 Calcium 10.1 mg/dL (8.4-10.2) 07/09/17 10:43 Total Creatine Kinase 179 units/L (55-170) H 07/15/17 05:33 Vitamin B12 543.5 pg/mL (211-911) 07/14/17 13:40 25-OH Vitamin D Total 18 ng/mL (30-100) L 07/14/17 13:40 TSH 2.030 mlU/mL (0.270-4.200) 07/14/17 13:40 Free T4 1.69 ng/dL (0.76-1.46) H 07/14/17 13:40 Total Cortisol 13.2 mcg/dL () 07/14/17 13:40 Urine Color Yellow (Yellow) 07/09/17 15:55 Urine Turbidity Clear (Clear) 07/09/17 15:55 Urine pH 6.0 (5.0-7.0) 07/09/17 15:55 Ur Specific [place] 1.032 (1.003-1.030) H 07/09/17 15:55 Urine Protein <15 mg/dl mg/dL (Negative) 07/09/17 15:55 Urine Glucose (UA) Neg mg/dL (Negative) 07/09/17 15:55 Urine Ketones Neg mg/dL (Negative) 07/09/17 15:55 Urine Blood Neg (Negative) 07/09/17 15:55 Urine Nitrite Neg (Negative) 07/09/17 15:55 Urine Bilirubin Neg (Negative) 07/09/17 15:55 Urine Urobilinogen 2.0 mg/dL (<2.0) 07/09/17 15:55 Ur Leukocyte Esterase Neg (Negative) 07/09/17 15:55 Urine WBC (Auto) 2.0 /HPF (0.0-6.0) 07/09/17 15:55 Urine RBC (Auto) 10.0 /HPF (0.0-6.0) 07/09/17 15:55 U Epithel Cells (Auto) < 1.0 /HPF (0-13.0) 07/09/17 15:55 Urine Mucus 2+ /HPF 07/09/17 15:55 Urine Opiates Screen Presumptive negative 07/09/17 15:55 Urine Methadone Screen Presumptive negative 07/09/17 15:55 Ur Barbiturates Screen Presumptive negative 07/09/17 15:55 Ur Phencyclidine Scrn Presumptive negative 07/09/17 15:55 Ur Amphetamines Screen Presumptive negative 07/09/17 15:55 U Benzodiazepines Scrn Presumptive positive 07/09/17 15:55 Urine Cocaine Screen Presumptive negative 07/09/17 15:55 U Marijuana (THC) Screen Presumptive negative 07/09/17 15:55 Drugs of Abuse Note Disclamer 07/09/17 15:55 Plasma/Serum Alcohol < 0.01 gm% (0-0.07) 07/09/17 10:43 NAZ Screen Negative (Negative) 07/14/17 13:40
[2017-07-23] MEDS: DESYREL PO SCH (21:31)
[2017-07-23] MEDS: REMERON PO SCH (21:31)
[2017-07-24] MEDS: ATIVAN IV PRN ×2 (01:19→05:24)
--- NOTE | 2017-07-24 09:53 | Progress Note ---
Subjective - Reason for Consult Consult date: 07/24/17 Reason for consult: Psychaitry Follow-up - Chief Complaint Chief complaint: "I need my mind right" 26 y.o. AA male presenting to [facility] via EMS for bizarre behavior. Today patient is calm, but disorganized during the assessment. He stated that his mind need to be right before he is discharged. This patient has said this in previous interviews. Per the staff, the patient will wander out of his room. He denies SI /HI's and AVH's. He denies drooling overnight. He stated that he slept more last night than previous nights. Mental Status Exam - Vital signs Last Vital Signs Temp 97.6 F 07/24/17 08:42 Pulse 90 07/23/17 21:25 Resp 18 07/24/17 08:42 BP 107/70 07/24/17 08:42 Pulse Ox 98 07/23/17 21:25 - Exam Narrative exam: MSE: Appearance: calm Behavior: good eye contact Speech: regular rate and tone Mood: "okay" Affect: congruent to mood Thought Process: circumstantial Thought Content: denies SI/HI's and AVH's, disorganized Motor Activity: ambulatory Cognition: A/O x3 Insight: variable Judgment: variable Assessment and Plan Impression: Unspecified Psychosis. Cognitive DO. Today patient is calm, but disorganized during the assessment. DDx: R/O Schizophrenia, R/O Delusional DO Recommendation/Plan: 1013 was rescinded previously. Continue Risperdal 1 mg PO BID, Remeron 15 mg PO, and Trazodone 150 mg PO HS. The patient's condition remains an effect from a multiple of processes that are influencing the current disorganized presentation. His condition will require a multifaceted approach consisting of neuro, neurosurgery, and psych. Recommend 1:1 sitter to help prevent patient from wandering.
[2017-07-24] MEDS: RisperDAL PO SCH ×2 (11:36→21:22)
--- NOTE | 2017-07-24 14:16 | Progress Note ---
Assessment and Plan Assessment and plan: Patient is a 26-year-old man with a history of brain mass s/p resection in November of this year who presented to the emergency department due to combative behavior towards family. Patient was recently in patient psychiatry facility and his medications were stopped per documentation and he was sent home. Unfortunately upon returning home all his symptoms returned, insomnia, agitation , disorganized behavior, anorexia and paranoia and aggressiveness towards family ; therefore, he was brought back to the emergency department. He was found to have acute rhabdomyolysis and admitted to the hospital under 1013. 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 Cheo Hines: "Impression: Unspecified Psychosis. Cognitive DO NOS Recommendation/Plan: d/c 1013. Add Trazodone to patient meds to help provide proper sleep. Will also increase the risperdal to 1mgpo qam and 2mg po qpm to address the psychosis. Once sleep has improved the family notes that they can manage the patient's needs better. The patient's condition remains an effect from a multiple of processes that are influencing the current disorganized presentation (including the paranoia). I feel that his condition will require a multifaceted approach consisting of neuro, neurosurgery, and psych. The family and I discussed how to proceed with acquiring this from an outpatient respective once patient is discharged." 07/22/17: still hasn't slept, will increase Trazodone to 150mg qhs. D/W psych, medication adjusted 07/23/17: He did sleep about 3 hours last night. He is now sleep also, after 2mg iv ativan round 4pm. I tried to call his mother at [phone] (number in the EMR), no answer 07/24/2017: d/w mother at (daughter's cell phone), she wants her to go to the [facility] and she doesn't feel like she can "handle him at home". Will discuss with case management. 1013 rescinded, continue sitter for safety reason, change iv ativan to po. History Interval history: Patient was seen and examined. Follow-up on current diagnosis. Overnight uneventful. Patient denies any chest pain, shortness breath, nausea/vomiting or severe headaches. Imaging, nursing note, chart, labs and old chart reviewed. Discussed with patient. Hospitalist Physical - Physical exam Narrative exam: GEN: WDWN, NAD, AWAKE, ALERT, ORIENTATED to self HEENT: NCAT, EOMI, PERRL, OP Clear NECK: supple, no adenopathy, no thyromegaly, no JVD CVS/HEART: RRR, NORMAL S1S2, NO JVD, pulses present bilaterally CHEST/LUNGS: CTA B, Symmetrical chest expansion, good air entry bilaterally GI/Abdomen: soft, NTND, good bowel sounds, no guarding or rebound /Bladder: no suprapubic tenderness, no CVA or paraspinal tenderness EXT/Skin: no c/c/e, no obvious rash MSK: FROM x 4 Neuro: CN 2-12 grossly intact, no new focal deficits Psych: calm - Constitutional Vitals: Temp Pulse Resp BP Pulse Ox 97.6 F 90 18 107/70 98 07/24/17 08:42 07/23/17 21:25 07/24/17 08:42 07/24/17 08:42 07/23/17 21:25 General appearance: Present: no acute distress Results - Labs CBC & Chem 7: 07/09/17 10:43 07/09/17 10:43 Labs: Laboratory Last Values WBC 9.8 K/mm3 (4.5-11.0) 07/09/17 10:43 RBC 5.77 M/mm3 (3.65-5.03) H 07/09/17 10:43 Hgb 17.1 gm/dl (11.8-15.2) H 07/09/17 10:43 Hct 50.5 % (35.5-45.6) H 07/09/17 10:43 MCV 88 fl (84-94) 07/09/17 10:43 MCH 30 pg (28-32) 07/09/17 10:43 MCHC 34 % (32-34) 07/09/17 10:43 RDW 13.8 % (13.2-15.2) 07/09/17 10:43 Plt Count 331 K/mm3 (140-440) 07/09/17 10:43 D-Dimer 433.30 ng/mlDDU (0-234) H 07/11/17 21:46 Sodium 140 mmol/L (137-145) 07/09/17 10:43 Potassium 4.1 mmol/L (3.6-5.0) 07/09/17 10:43 Chloride 98.5 mmol/L (98-107) 07/09/17 10:43 Carbon Dioxide 30 mmol/L (22-30) 07/09/17 10:43 Anion Gap 16 mmol/L 07/09/17 10:43 BUN 15 mg/dL (9-20) 07/09/17 10:43 Creatinine 0.9 mg/dL (0.8-1.5) 07/09/17 10:43 Estimated GFR > 60 ml/min 07/09/17 10:43 BUN/Creatinine Ratio 17 % 07/09/17 10:43 Glucose 65 mg/dL (75-100) L 07/09/17 10:43 Calcium 10.1 mg/dL (8.4-10.2) 07/09/17 10:43 Total Creatine Kinase 179 units/L (55-170) H 07/15/17 05:33 Vitamin B12 543.5 pg/mL (211-911) 07/14/17 13:40 25-OH Vitamin D Total 18 ng/mL (30-100) L 07/14/17 13:40 TSH 2.030 mlU/mL (0.270-4.200) 07/14/17 13:40 Free T4 1.69 ng/dL (0.76-1.46) H 07/14/17 13:40 Total Cortisol 13.2 mcg/dL () 07/14/17 13:40 Urine Color Yellow (Yellow) 07/09/17 15:55 Urine Turbidity Clear (Clear) 07/09/17 15:55 Urine pH 6.0 (5.0-7.0) 07/09/17 15:55 Ur Specific [place] 1.032 (1.003-1.030) H 07/09/17 15:55 Urine Protein <15 mg/dl mg/dL (Negative) 07/09/17 15:55 Urine Glucose (UA) Neg mg/dL (Negative) 07/09/17 15:55 Urine Ketones Neg mg/dL (Negative) 07/09/17 15:55 Urine Blood Neg (Negative) 07/09/17 15:55 Urine Nitrite Neg (Negative) 07/09/17 15:55 Urine Bilirubin Neg (Negative) 07/09/17 15:55 Urine Urobilinogen 2.0 mg/dL (<2.0) 07/09/17 15:55 Ur Leukocyte Esterase Neg (Negative) 07/09/17 15:55 Urine WBC (Auto) 2.0 /HPF (0.0-6.0) 07/09/17 15:55 Urine RBC (Auto) 10.0 /HPF (0.0-6.0) 07/09/17 15:55 U Epithel Cells (Auto) < 1.0 /HPF (0-13.0) 07/09/17 15:55 Urine Mucus 2+ /HPF 07/09/17 15:55 Urine Opiates Screen Presumptive negative 07/09/17 15:55 Urine Methadone Screen Presumptive negative 07/09/17 15:55 Ur Barbiturates Screen Presumptive negative 07/09/17 15:55 Ur Phencyclidine Scrn Presumptive negative 07/09/17 15:55 Ur Amphetamines Screen Presumptive negative 07/09/17 15:55 U Benzodiazepines Scrn Presumptive positive 07/09/17 15:55 Urine Cocaine Screen Presumptive negative 07/09/17 15:55 U Marijuana (THC) Screen Presumptive negative 07/09/17 15:55 Drugs of Abuse Note Disclamer 07/09/17 15:55 Plasma/Serum Alcohol < 0.01 gm% (0-0.07) 07/09/17 10:43 NAZ Screen Negative (Negative) 07/14/17 13:40
[2017-07-24] MEDS: DESYREL PO SCH (21:21)
[2017-07-24] MEDS: ATIVAN PO PRN (21:22)
[2017-07-24] MEDS: REMERON PO SCH (21:22)
--- NOTE | 2017-07-25 09:15 | Progress Note ---
Subjective - Reason for Consult Consult date: 07/25/17 Reason for consult: Psychiatry Follow-up - Chief Complaint Chief complaint: "Good morning" 26 y.o. AA male presenting to [facility] via EMS for bizarre behavior. Today patient is calm, but still disorganized during the assessment. Upon my arrival to his room, he was eating his breakfast. Per the note, no behavioral disturbance overnight by the patient. The patient denies sleep disturbance. He denies SI/HI' s and AVH's. He denies any side effects of his medications. Mental Status Exam - Vital signs Last Vital Signs Temp 98.5 F 07/24/17 20:51 Pulse 94 H 07/24/17 20:51 Resp 20 07/24/17 20:51 BP 118/71 07/24/17 20:51 Pulse Ox 100 07/24/17 20:51 - Exam Narrative exam: MSE: Appearance: calm Behavior: good eye contact Speech: regular rate and tone Mood: "okay" Affect: congruent to mood Thought Process: circumstantial Thought Content: denies SI/HI's and AVH's, disorganized Motor Activity: ambulatory Cognition: A/O x3 Insight: variable Judgment: variable Assessment and Plan Impression: Unspecified Psychosis. Cognitive DO. Today patient is calm, but disorganized during the assessment. DDx: R/O Schizophrenia, R/O Delusional DO Recommendation/Plan: 1013 was rescinded previously. Continue Risperdal 1 mg PO BID, Remeron 15 mg PO, and Trazodone 150 mg PO HS. The patient's condition remains an effect from a multiple of processes that are influencing the current disorganized presentation. His condition will require a multifaceted approach consisting of neuro, neurosurgery, and psych. Recommend 1:1 sitter to help prevent patient from wandering. Psychiatry signoff this patient.
[2017-07-25] MEDS: RisperDAL PO SCH ×2 (10:36→21:34)
--- NOTE | 2017-07-25 11:38 | Progress Note ---
Assessment and Plan Assessment and plan: Patient is a 26-year-old man with a history of brain mass s/p resection in November of this year who presented to the emergency department due to combative behavior towards family. Patient was recently in patient psychiatry facility and his medications were stopped per documentation and he was sent home. Unfortunately upon returning home all his symptoms returned, insomnia, agitation , disorganized behavior, anorexia and paranoia and aggressiveness towards family ; therefore, he was brought back to the emergency department. He was found to have acute rhabdomyolysis and admitted to the hospital under 1013. 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 Cheo Hines: "Impression: Unspecified Psychosis. Cognitive DO NOS Recommendation/Plan: d/c 1013. Add Trazodone to patient meds to help provide proper sleep. Will also increase the risperdal to 1mgpo qam and 2mg po qpm to address the psychosis. Once sleep has improved the family notes that they can manage the patient's needs better. The patient's condition remains an effect from a multiple of processes that are influencing the current disorganized presentation (including the paranoia). I feel that his condition will require a multifaceted approach consisting of neuro, neurosurgery, and psych. The family and I discussed how to proceed with acquiring this from an outpatient respective once patient is discharged." 07/22/17: still hasn't slept, will increase Trazodone to 150mg qhs. D/W psych, medication adjusted 07/23/17: He did sleep about 3 hours last night. He is now sleep also, after 2mg iv ativan round 4pm. I tried to call his mother at [phone] (number in the EMR), no answer 07/24/2017: d/w mother at (daughter's cell phone), she wants her to go to the [facility] and she doesn't feel like she can "handle him at home". Will discuss with case management. 1013 rescinded, continue sitter for safety reason, change iv ativan to po. 07/25/2017: [facility] not willing to take him per case management, will d/c home with mother. He did sleep. History Interval history: Patient was seen and examined. Follow-up on current diagnosis. Overnight uneventful. Patient denies any chest pain, shortness breath, nausea/vomiting or severe headaches. Imaging, nursing note, chart, labs and old chart reviewed. Discussed with patient. Hospitalist Physical - Physical exam Narrative exam: GEN: WDWN, NAD, AWAKE, ALERT, ORIENTATED to self HEENT: NCAT, EOMI, PERRL, OP Clear NECK: supple, no adenopathy, no thyromegaly, no JVD CVS/HEART: RRR, NORMAL S1S2, NO JVD, pulses present bilaterally CHEST/LUNGS: CTA B, Symmetrical chest expansion, good air entry bilaterally GI/Abdomen: soft, NTND, good bowel sounds, no guarding or rebound /Bladder: no suprapubic tenderness, no CVA or paraspinal tenderness EXT/Skin: no c/c/e, no obvious rash MSK: FROM x 4 Neuro: CN 2-12 grossly intact, no new focal deficits Psych: calm - Constitutional Vitals: Temp Pulse Resp BP Pulse Ox 98.1 F 84 18 112/69 100 07/25/17 10:34 07/25/17 10:34 07/25/17 10:34 07/25/17 10:34 07/25/17 10:34 General appearance: Present: no acute distress Results - Labs CBC & Chem 7: 07/09/17 10:43 07/09/17 10:43 Labs: Laboratory Last Values WBC 9.8 K/mm3 (4.5-11.0) 07/09/17 10:43 RBC 5.77 M/mm3 (3.65-5.03) H 07/09/17 10:43 Hgb 17.1 gm/dl (11.8-15.2) H 07/09/17 10:43 Hct 50.5 % (35.5-45.6) H 07/09/17 10:43 MCV 88 fl (84-94) 07/09/17 10:43 MCH 30 pg (28-32) 07/09/17 10:43 MCHC 34 % (32-34) 07/09/17 10:43 RDW 13.8 % (13.2-15.2) 07/09/17 10:43 Plt Count 331 K/mm3 (140-440) 07/09/17 10:43 D-Dimer 433.30 ng/mlDDU (0-234) H 07/11/17 21:46 Sodium 140 mmol/L (137-145) 07/09/17 10:43 Potassium 4.1 mmol/L (3.6-5.0) 07/09/17 10:43 Chloride 98.5 mmol/L (98-107) 07/09/17 10:43 Carbon Dioxide 30 mmol/L (22-30) 07/09/17 10:43 Anion Gap 16 mmol/L 07/09/17 10:43 BUN 15 mg/dL (9-20) 07/09/17 10:43 Creatinine 0.9 mg/dL (0.8-1.5) 07/09/17 10:43 Estimated GFR > 60 ml/min 07/09/17 10:43 BUN/Creatinine Ratio 17 % 07/09/17 10:43 Glucose 65 mg/dL (75-100) L 07/09/17 10:43 Calcium 10.1 mg/dL (8.4-10.2) 07/09/17 10:43 Total Creatine Kinase 179 units/L (55-170) H 07/15/17 05:33 Vitamin B12 543.5 pg/mL (211-911) 07/14/17 13:40 25-OH Vitamin D Total 18 ng/mL (30-100) L 07/14/17 13:40 TSH 2.030 mlU/mL (0.270-4.200) 07/14/17 13:40 Free T4 1.69 ng/dL (0.76-1.46) H 07/14/17 13:40 Total Cortisol 13.2 mcg/dL () 07/14/17 13:40 Urine Color Yellow (Yellow) 07/09/17 15:55 Urine Turbidity Clear (Clear) 07/09/17 15:55 Urine pH 6.0 (5.0-7.0) 07/09/17 15:55 Ur Specific [place] 1.032 (1.003-1.030) H 07/09/17 15:55 Urine Protein <15 mg/dl mg/dL (Negative) 07/09/17 15:55 Urine Glucose (UA) Neg mg/dL (Negative) 07/09/17 15:55 Urine Ketones Neg mg/dL (Negative) 07/09/17 15:55 Urine Blood Neg (Negative) 07/09/17 15:55 Urine Nitrite Neg (Negative) 07/09/17 15:55 Urine Bilirubin Neg (Negative) 07/09/17 15:55 Urine Urobilinogen 2.0 mg/dL (<2.0) 07/09/17 15:55 Ur Leukocyte Esterase Neg (Negative) 07/09/17 15:55 Urine WBC (Auto) 2.0 /HPF (0.0-6.0) 07/09/17 15:55 Urine RBC (Auto) 10.0 /HPF (0.0-6.0) 07/09/17 15:55 U Epithel Cells (Auto) < 1.0 /HPF (0-13.0) 07/09/17 15:55 Urine Mucus 2+ /HPF 07/09/17 15:55 Urine Opiates Screen Presumptive negative 07/09/17 15:55 Urine Methadone Screen Presumptive negative 07/09/17 15:55 Ur Barbiturates Screen Presumptive negative 07/09/17 15:55 Ur Phencyclidine Scrn Presumptive negative 07/09/17 15:55 Ur Amphetamines Screen Presumptive negative 07/09/17 15:55 U Benzodiazepines Scrn Presumptive positive 07/09/17 15:55 Urine Cocaine Screen Presumptive negative 07/09/17 15:55 U Marijuana (THC) Screen Presumptive negative 07/09/17 15:55 Drugs of Abuse Note Disclamer 07/09/17 15:55 Plasma/Serum Alcohol < 0.01 gm% (0-0.07) 07/09/17 10:43 NAZ Screen Negative (Negative) 07/14/17 13:40
--- NOTE | 2017-07-25 11:42 | Discharge Summary ---
Providers - Providers Date of Admission: 07/11/17 20:15 Date of discharge: 07/25/17 Attending physician: DANIELLE KUMAR 07/11/17 20:27 psychiatry consult [Consult to Mental Health] [CONS] Routine Reason For Exam: psychosis Place consult to:: psych Notified:: yes Phone number called:: [phone] Was contact made?: Yes If yes, spoke with:: Jacqueline Reese called:: 08:14 07/13/17 14:57 Consult to Physician [CONS] Routine Consulting Provider: GAURANG GUARDADO Reason For Exam: sp brain surgery, with insomnia and confusion Place consult to:: Dr. Guardado Notified:: Dr. Guardado Phone number called:: Paged inhouse Was contact made?: Yes If yes, spoke with:: Dr. Guardado Time called:: 11:38 Comment:: will see pt. today Primary care physician: [facility] [employer] [facility] Hospitalization Condition: Stable Hospital course: Patient is a 26-year-old man with a history of brain mass s/p resection in November of this year who presented to the emergency department due to combative behavior towards family. Patient was recently in patient psychiatry facility and his medications were stopped per documentation and he was sent home. Unfortunately upon returning home all his symptoms returned, insomnia, agitation , disorganized behavior, anorexia and paranoia and aggressiveness towards family ; therefore, he was brought back to the emergency department. He was found to have acute rhabdomyolysis and admitted to the hospital under 1013. 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 Cheo Hines: "Impression: Unspecified Psychosis. Cognitive DO NOS Recommendation/Plan: d/c 1013. Add Trazodone to patient meds to help provide proper sleep. Will also increase the risperdal to 1mgpo qam and 2mg po qpm to address the psychosis. Once sleep has improved the family notes that they can manage the patient's needs better. The patient's condition remains an effect from a multiple of processes that are influencing the current disorganized presentation (including the paranoia). I feel that his condition will require a multifaceted approach consisting of neuro, neurosurgery, and psych. The family and I discussed how to proceed with acquiring this from an outpatient respective once patient is discharged." 07/22/17: still hasn't slept, will increase Trazodone to 150mg qhs. D/W psych, medication adjusted 07/23/17: He did sleep about 3 hours last night. He is now sleep also, after 2mg iv ativan round 4pm. I tried to call his mother at [phone] (number in the EMR), no answer 07/24/2017: d/w mother at (daughter's cell phone), she wants her to go to the [facility] and she doesn't feel like she can "handle him at home". Will discuss with case management. 1013 rescinded, continue sitter for safety reason, change iv ativan to po. 07/25/2017: [facility] not willing to take him per case management but medical doctor will give final decision, will d/c home with mother. He did sleep. Disposition: [id number]-06 HOME UNDER HOME [facility] Time spent for discharge: 35 minutes Core Measure Documentation - Palliative Care Palliative Care/ Comfort Measures: Not Applicable - Core Measures Any of the following diagnoses?: none - VTE Discharge Requirements Deep Vein Thrombosis/Pulmonary Embolism Present on Admission: No Has pt received <5 days of overlap therapy or INR<2.0: No Anticoagulant overlap therapy prescribed at discharge: No Contraindication No Overlap Therapy order at DC: Not Indicated Exam - Physical Exam Narrative exam: GEN: WDWN, NAD, AWAKE, ALERT, ORIENTATED to self HEENT: NCAT, EOMI, PERRL, OP Clear NECK: supple, no adenopathy, no thyromegaly, no JVD CVS/HEART: RRR, NORMAL S1S2, NO JVD, pulses present bilaterally CHEST/LUNGS: CTA B, Symmetrical chest expansion, good air entry bilaterally GI/Abdomen: soft, NTND, good bowel sounds, no guarding or rebound /Bladder: no suprapubic tenderness, no CVA or paraspinal tenderness EXT/Skin: no c/c/e, no obvious rash MSK: FROM x 4 Neuro: CN 2-12 grossly intact, no new focal deficits Psych: calm but confused - Constitutional Vitals: Temp Pulse Resp BP Pulse Ox 98.1 F 84 18 112/69 100 07/25/17 10:34 07/25/17 10:34 07/25/17 10:34 07/25/17 10:34 07/25/17 10:34 Plan Activity: up only with assistance, fall precautions Follow up with: PRIMARY CARE,MD [Primary Care Provider] - 7 Days Prescriptions: Mirtazapine [Remeron] 15 mg PO QHS #30 tablet traZODone [Desyrel] 150 mg PO QHS #30 day Acetaminophen [Acetaminophen TAB] 325 mg PO Q4H PRN #30 tablet PRN Reason: Pain MILD(1-3)/Fever >100.5/ANAYA LORazepam [Ativan] 2 mg PO Q4H PRN #30 day PRN Reason: Agitation risperiDONE [RisperDAL] 1 mg PO BID #60 tablet
[2017-07-25] MEDS: ATIVAN PO PRN (21:34)
[2017-07-25] MEDS: DESYREL PO SCH (21:34)
[2017-07-25] MEDS: REMERON PO SCH (21:34)
[2017-07-26 08:49] VITALS: BP 110/53
[2017-07-26] MEDS: RisperDAL PO SCH (10:41)
--- NOTE | 2017-07-26 12:04 | Progress Note ---
Assessment and Plan Assessment and plan: Patient is a 26-year-old man with a history of brain mass s/p resection in November of this year who presented to the emergency department due to combative behavior towards family. Patient was recently in patient psychiatry facility and his medications were stopped per documentation and he was sent home. Unfortunately upon returning home all his symptoms returned, insomnia, agitation , disorganized behavior, anorexia and paranoia and aggressiveness towards family ; therefore, he was brought back to the emergency department. He was found to have acute rhabdomyolysis and admitted to the hospital under 1013. 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 Cheo Hines: "Impression: Unspecified Psychosis. Cognitive DO NOS Recommendation/Plan: d/c 1013. Add Trazodone to patient meds to help provide proper sleep. Will also increase the risperdal to 1mgpo qam and 2mg po qpm to address the psychosis. Once sleep has improved the family notes that they can manage the patient's needs better. The patient's condition remains an effect from a multiple of processes that are influencing the current disorganized presentation (including the paranoia). I feel that his condition will require a multifaceted approach consisting of neuro, neurosurgery, and psych. The family and I discussed how to proceed with acquiring this from an outpatient respective once patient is discharged." 07/22/17: still hasn't slept, will increase Trazodone to 150mg qhs. D/W psych, medication adjusted 07/23/17: He did sleep about 3 hours last night. He is now sleep also, after 2mg iv ativan round 4pm. I tried to call his mother at [phone] (number in the EMR), no answer 07/24/2017: d/w mother at (daughter's cell phone), she wants her to go to the [facility] and she doesn't feel like she can "handle him at home". Will discuss with case management. 1013 rescinded, continue sitter for safety reason, change iv ativan to po. 07/25/2017: [facility] not willing to take him per case management, will d/c home with mother. He did sleep. Mother came and we spoke at length. She had an errand to run and she said she would come back to pick her up. 07/26/2017: Mother just did not come back to the hospital yesterday to berry picker her son. d/w case management History Interval history: Patient was seen and examined. Follow-up on current diagnosis. Overnight uneventful. Patient denies any chest pain, shortness breath, nausea/vomiting or severe headaches. Imaging, nursing note, chart, labs and old chart reviewed. Discussed with patient. Hospitalist Physical - Physical exam Narrative exam: GEN: WDWN, NAD, AWAKE, ALERT, ORIENTATED to self HEENT: NCAT, EOMI, PERRL, OP Clear NECK: supple, no adenopathy, no thyromegaly, no JVD CVS/HEART: RRR, NORMAL S1S2, NO JVD, pulses present bilaterally CHEST/LUNGS: CTA B, Symmetrical chest expansion, good air entry bilaterally GI/Abdomen: soft, NTND, good bowel sounds, no guarding or rebound /Bladder: no suprapubic tenderness, no CVA or paraspinal tenderness EXT/Skin: no c/c/e, no obvious rash MSK: FROM x 4 Neuro: CN 2-12 grossly intact, no new focal deficits Psych: calm but confused - Constitutional Vitals: Temp Pulse Resp BP Pulse Ox 98.3 F 99 H 18 110/53 100 07/26/17 08:39 07/26/17 08:39 07/26/17 08:39 07/26/17 08:39 07/26/17 08:39 General appearance: Present: no acute distress Results - Labs CBC & Chem 7: 07/09/17 10:43 07/09/17 10:43 Labs: Laboratory Last Values WBC 9.8 K/mm3 (4.5-11.0) 07/09/17 10:43 RBC 5.77 M/mm3 (3.65-5.03) H 07/09/17 10:43 Hgb 17.1 gm/dl (11.8-15.2) H 07/09/17 10:43 Hct 50.5 % (35.5-45.6) H 07/09/17 10:43 MCV 88 fl (84-94) 07/09/17 10:43 MCH 30 pg (28-32) 07/09/17 10:43 MCHC 34 % (32-34) 07/09/17 10:43 RDW 13.8 % (13.2-15.2) 07/09/17 10:43 Plt Count 331 K/mm3 (140-440) 07/09/17 10:43 D-Dimer 433.30 ng/mlDDU (0-234) H 07/11/17 21:46 Sodium 140 mmol/L (137-145) 07/09/17 10:43 Potassium 4.1 mmol/L (3.6-5.0) 07/09/17 10:43 Chloride 98.5 mmol/L (98-107) 07/09/17 10:43 Carbon Dioxide 30 mmol/L (22-30) 07/09/17 10:43 Anion Gap 16 mmol/L 07/09/17 10:43 BUN 15 mg/dL (9-20) 07/09/17 10:43 Creatinine 0.9 mg/dL (0.8-1.5) 07/09/17 10:43 Estimated GFR > 60 ml/min 07/09/17 10:43 BUN/Creatinine Ratio 17 % 07/09/17 10:43 Glucose 65 mg/dL (75-100) L 07/09/17 10:43 Calcium 10.1 mg/dL (8.4-10.2) 07/09/17 10:43 Total Creatine Kinase 179 units/L (55-170) H 07/15/17 05:33 Vitamin B12 543.5 pg/mL (211-911) 07/14/17 13:40 25-OH Vitamin D Total 18 ng/mL (30-100) L 07/14/17 13:40 TSH 2.030 mlU/mL (0.270-4.200) 07/14/17 13:40 Free T4 1.69 ng/dL (0.76-1.46) H 07/14/17 13:40 Total Cortisol 13.2 mcg/dL () 07/14/17 13:40 Urine Color Yellow (Yellow) 07/09/17 15:55 Urine Turbidity Clear (Clear) 07/09/17 15:55 Urine pH 6.0 (5.0-7.0) 07/09/17 15:55 Ur Specific [place] 1.032 (1.003-1.030) H 07/09/17 15:55 Urine Protein <15 mg/dl mg/dL (Negative) 07/09/17 15:55 Urine Glucose (UA) Neg mg/dL (Negative) 07/09/17 15:55 Urine Ketones Neg mg/dL (Negative) 07/09/17 15:55 Urine Blood Neg (Negative) 07/09/17 15:55 Urine Nitrite Neg (Negative) 07/09/17 15:55 Urine Bilirubin Neg (Negative) 07/09/17 15:55 Urine Urobilinogen 2.0 mg/dL (<2.0) 07/09/17 15:55 Ur Leukocyte Esterase Neg (Negative) 07/09/17 15:55 Urine WBC (Auto) 2.0 /HPF (0.0-6.0) 07/09/17 15:55 Urine RBC (Auto) 10.0 /HPF (0.0-6.0) 07/09/17 15:55 U Epithel Cells (Auto) < 1.0 /HPF (0-13.0) 07/09/17 15:55 Urine Mucus 2+ /HPF 07/09/17 15:55 Urine Opiates Screen Presumptive negative 07/09/17 15:55 Urine Methadone Screen Presumptive negative 07/09/17 15:55 Ur Barbiturates Screen Presumptive negative 07/09/17 15:55 Ur Phencyclidine Scrn Presumptive negative 07/09/17 15:55 Ur Amphetamines Screen Presumptive negative 07/09/17 15:55 U Benzodiazepines Scrn Presumptive positive 07/09/17 15:55 Urine Cocaine Screen Presumptive negative 07/09/17 15:55 U Marijuana (THC) Screen Presumptive negative 07/09/17 15:55 Drugs of Abuse Note Disclamer 07/09/17 15:55 Plasma/Serum Alcohol < 0.01 gm% (0-0.07) 07/09/17 10:43 NAZ Screen Negative (Negative) 07/14/17 13:40
== END 2017-07-26 11:50 | disposition home health service (06) | DRG 558 ==
LOC: ED 10:19 → EEVIPCON 10:19 → 3A 07-11 20:15
PROVIDERS: ADMIT Internal Medicine; ATTEND Internal Medicine
DX: M62.82 Rhabdomyolysis (principal); Z68.1 Body mass index [BMI] 19.9 or less, adult; F22 Delusional disorders; G47.00 Insomnia, unspecified; R63.0 Anorexia
CPT/HCPCS: 36415; 70450; 71010; 71275; 74177; 74178; 80048; 80307; 80320; 81001; 82306; 82533; 82550; 82607; 84439; 84443; 85027; 85379; 86038; 93970; 96372; 99285; G0480; J1630; J2060; J3486; J7030; Q9967